=== PATIENT | female | born 1985 | race Caucasian/White ===

== ENCOUNTER 2020-03-02 11:05 | Emergency (ER) | payer BC, SELFPAY ==
[2020-03-02 11:41] VITALS: BP 145/103; PULSE 96; RESP 18; TEMP 37.5; O2SAT 97; BMI 32.3
[2020-03-02 12:00] VITALS: BP 132/92; PULSE 77; RESP 16; O2SAT 98
--- NOTE | 2020-03-02 12:22 | ED_ITS ---
HPI - Headache General Chief Complaint: Headache Stated Complaint: headache Time Seen by Provider: 03/02/20 12:22 Source: patient Mode of arrival: ambulatory Limitations: no limitations History of Present Illness HPI Narrative: Patient with 1 week of migraine headache. Left sided with nausea and light sensitivity. patient took her sumatryptine without improvement MD elicited complaint: migraine Onset (ago): week(s) Onset description: gradually Location: left Severity: moderate Quality & Timing: throbbing Exacerbating factors: movement of head/neck Related Data Previous Rx's Medication Instructions Recorded naproxen [Naprosyn] 500 mg PO BID #20 tab 03/02/20 Allergies Allergy/AdvReac Type Severity Reaction Status Date / Time No Known Allergies Allergy Verified 03/02/20 11:09 Review of Systems Constitutional: Constitutional: Reports no additional constitutional complaints Eyes: Eyes: Reports no additional eye complaints ENT: Denies dizziness Cardiovascular: Cardiovascular: Reports no additional cardiovascular complaints Respiratory: Respiratory: Reports as per HPI Gastrointestinal: Gastrointestinal: Reports no additional gastrointestinal complaints Genitourinary: Genitourinary: Reports no additional female genitourinary complaints Musculoskeletal: Musculoskeletal: Reports no additional musculoskeletal complaints Integumentary/Breasts: Skin/Breast: Denies rash Neurologic: Reports system reviewed and no additional complaints, except as documented, Denies dizziness and Denies Sensory deficit (Neuro) Psychiatric: Psychiatric: Denies anxiety [facility] Past Medical History Medical History (Updated 03/02/20 @ 16:15 by Mookie Young MD) Migraine Social History Social History Smoking Status: Never smoker Use of substances other than those prescribed or required for medical reasons: No Advance Directives: No Advance Directives Information Provided: No Physical Exam Vital Signs: Vital Signs: Vital Signs Temp Pulse Resp BP Pulse Ox 03/02/20 14:20 97.5 F 86 14 114/64 99 03/02/20 12:00 77 16 132/92 H 98 03/02/20 11:41 99.5 F 96 18 145/103 H 97 Body Mass Index 32.3 Const: General: healthy appearing Nutritional Appearance: average body habitus Orientation/consciousness: oriented to person and patient oriented x3 Limitations: no limitations HENMT: Head: Yes normal to inspection Ears: external ears normal General nose exam: Normal external nose present Mouth: Normal oral and palatal mucosa present and oropharynx normal Throat: Yes posterior oropharynx normal Eyes: General: appearance normal, both eyes and all related structures Neck: Other: supple Neck: Yes normal visual inspection Chest: Chest palpation & inspection: normal inspection of the chest Resp: Auscultation: clear to auscultation bilaterally Cardio: Jugular venous distension: no JVD Rate: regular rate Rhythm: regular rhythm Heart sounds: S1 normal heart sound present and S2 normal heart sound present GI: Inspection: Yes normal to inspection Palpation (GI): Soft to palpation, nontender and No hepatosplenomegaly present Auscultation: normal bowel sounds : General: Yes no CVA tenderness Back/Spine/Pelvis: Back: no CVA tenderness Skin: General skin exam: no rashes or lesions noted Neuro: General: oriented to person and patient oriented x3 Cranial nerves: Yes CN's II-XII intact bilaterally Motor exam (neuro): 5/5 motor strength present throughout Sensory Exam: No Sensory deficit (Neuro) Extrem: General: Yes normal to inspection Psych: Appearance: grossly normal Course Course Course Narrative: slurred from the phenergan Reevaluation(s) Reevaluation #1: patient appearing better will give IV tylenol and then dc home MDM - Headache MDM Narrative Medical decision making narrative: 35yo female with migraine history appearing better will dc home Differential Diagnosis Differential diagnosis: Likely migraine Discharge Plan Discharge Clinical Impression: Migraine Qualifiers: Migraine type: without aura Status migrainosus presence: with status migrainosus Intractability: intractable Qualified Code(s): G43.011 - Migraine without aura, intractable, with status migrainosus Patient Disposition: Home, Self-Care Instructions: Migraine Headache (ED) Prescriptions: New naproxen [Naprosyn] 500 mg tablet 500 mg PO BID Qty: 20 RF: 0 Referrals: Arsh Vanegas MD [Primary Care Provider] - 2 days
[2020-03-02] MEDS: 0.9 % Sodium Chloride 500 ML 1000 ML IV (13:12)
[2020-03-02] MEDS: Ketorolac Tromethamine 30 MG/ML VIAL IVPUSH (13:12)
[2020-03-02 14:20] VITALS: BP 114/64; PULSE 86; RESP 14; TEMP 36.4; O2SAT 99
--- NOTE | 2020-03-02 14:46 | PC.NURSE ---
went to re assess pt pain, pt sleeping at this time.
[2020-03-02] MEDS: Acetaminophen 325 MG TABLET 975 MG PO (16:59)
--- NOTE | 2020-03-02 17:02 | PC.NURSE ---
RN IN TO GIVE PT TYLENOL DOSE ORDERED BY . PT ASKING IF SHE CAN HAVE OTHER MEDS THAN TYLENOL, STATES THEY DID NOT WORK AT HOME. ALSO ASKING WHAT MED SHE WOULD BE DC WITH, REVIEWED NAPROXSYN WITH PT, PT AGAIN ASKING FOR DIFFERENT HOME MED THEY DID NTO WORK FOR HER AT HOME. EXPLAINED TO PT THAT SHE MAY NEED FU WITH NEUROLOGY FOR STRONGER MEDS, SPOKE WITH MD ABOUT [facility] AND HE AGREE PT SHOULD FOLLOW UP WITH NEURO. EXPLAINED AGAIN TO PT, SHE STATED THAT HER NEUROLOGIST DOES NOT CALL HER BACK, BUT THEN LATER TOLD RN THAT SHE HAD CALLED THEIR OFFICE WHEN MIGRAINE BEGAN AND HAS MEDROL PACK FROM THEM. ENCOURAGED PT TO CONTINUE TAKING MEDROL PRESCRIBED. REVIEWED HOME MEDS AND EXPLAINED TO PT IF MIGRAINE IS WORSENING TO RETURN TO ED, OTHER TRACEY CALL PCP/NEUROLOGY WEDNESDAY FOR APPOINTMENTS, AND POSSIBLY ASK FOR REFERRAL TO DIFFERENT NEUROLOGIST IF SHE FEELS HER NEEDS ARE NOT BEING MET. PT AGREED AND AMBULATED WITH STEADY GAIT TO EXIT.
== END 2020-03-02 17:06 | disposition home or self-care (01) ==
PROVIDERS: Emergency Provider Emergency Medicine; PCP Internal Medicine
DX: G43.011 Migraine without aura, intractable, with status migrainosus (principal); Z79.899 Other long term (current) drug therapy
CPT/HCPCS: 96374; 96375; 99284; J1885

== ENCOUNTER 2020-03-17 11:36 | Emergency (ER) | payer BC, SELFPAY ==
[2020-03-17 11:47] VITALS: BP 132/85; PULSE 72; RESP 16; TEMP 36.6; O2SAT 97; BMI 32.3
--- NOTE | 2020-03-17 11:56 | CT_ITS ---
EXAMINATION: CT HEAD WITHOUT CONTRAST CLINICAL INFORMATION: Headache. COMPARISON: None TECHNIQUE: Contiguous axial imaging was performed from the skull base to vertex without intravenous administration of contrast. This CT examination was performed using dose optimization techniques as appropriate, variously including the following: *Automated exposure control *Adjustment of mA and/or kV according to patient size (this includes techniques or standardized protocols for targeted exams where dose is matched to indication/reason for exam; i.e. extremities or head) *Use of iterative reconstruction technique DLP: 711.0 mGy-cm FINDINGS: There is no evidence of acute intracranial hemorrhage or territorial infarction. No abnormal mass effect or midline shift is seen. Treadwell to white matter differentiation is well preserved. No extra-axial fluid collections are identified. The ventricles are normal in size. There is no abnormal attenuation within the brain parenchyma. The osseous structures and soft tissues are normal. The mastoid air cells and visualized portions of the paranasal sinuses are well aerated. CT/CT head/brain wo con IMPRESSION: No acute intracranial pathology.
--- NOTE | 2020-03-17 11:59 | ED_ITS ---
HPI - Headache General Chief Complaint: Headache Stated Complaint: Migraine Time Seen by Provider: 03/17/20 11:56 Source: patient Mode of arrival: ambulatory History of Present Illness MD elicited complaint: headache Pertinent past history: migraines Onset (ago): week(s) (3) Onset description: gradually Location: generalized Severity: moderate Quality & Timing: throbbing Exacerbating factors: movement of head/neck, light and noise Relieving factors: NSAIDs and prescription medication Context: occurred at rest Associated symptoms: nausea and photophobia Treatments prior to arrival: none Related Data Previous Rx's Medication Instructions Recorded naproxen [Naprosyn] 500 mg PO BID #20 tab 03/02/20 Allergies Allergy/AdvReac Type Severity Reaction Status Date / Time No Known Allergies Allergy Verified 03/02/20 11:09 Review of Systems Review of Systems: Constitutional : No Fever, No Chills, No Fatigue ENT/Mouth : No sore throat, No Rhinorrhea Eyes: + photophobia , No Swelling, No Redness Cardiovascular : No Chest Pain, No SOB, No Dyspnea on Exertion Respiratory : No Cough, No Sputum Gastrointestinal : pos Nausea, No Vomiting, No Diarrhea, No abdominal Pain Genitourinary : No Dysuria, No Urinary Frequency, No Hematuria, Musculoskeletal : No joint pain, No Myalgias, No Joint Swelling Skin : No Skin Lesions, No rash Neuro : No Weakness, No Numbness, No Dizziness, positive Headache Psych : No Anxiety/Panic, No Depression Heme/Lymph: No Bruising, No Bleeding,No Lymphadenopathy Endocrine : No Polyuria, No Polydipsia All other systems reviewed and are negative [facility] Past Medical History Attestation statement: The following information was validated with the patient. Medical History (Updated 03/17/20 @ 13:48 by Sayda Sommers DO) Migraine PCOS (polycystic ovarian syndrome) Social History Social History Smoking Status: Never smoker Smoked in Last 30 Days: No Use of substances other than those prescribed or required for medical reasons: No Advance Directives: No Advance Directives Information Provided: Yes Physical Exam Vital Signs: Vital Signs: Last Vital Signs Temp 97.8 F 03/17/20 11:47 Pulse 72 03/17/20 11:47 Resp 16 03/17/20 11:47 BP 132/85 03/17/20 11:47 Pulse Ox 97 03/17/20 11:47 Body Mass Index 32.3 Appearance: Alert. Oriented X3. No acute distress. Eyes: Pupils equal, round and reactive to light. ENT: Pharynx normal. Neck: Normal inspection. Neck supple. no meningeal signs CVS: Normal heart rate and rhythm. Pulses normal. Respiratory: No respiratory distress. Breath sounds normal. Abdomen: Soft and nontender. Skin: Skin warm and dry. Normal skin color. Normal skin turgor. Extremities: No lower extremity edema. No calf ttp Neuro: Oriented X 3. No motor deficit. No sensory deficit. Course Course Course Narrative: CT scan negative, feels much better after cocktail of medications MDM - Headache MDM Narrative Medical decision making narrative: 35 yo female no AC therapy hx of headaches - with migraine x 3 weeks, longest duration, will obtain CT head for mass, IVF, IV magnesium/steroids, reglan/toradol, dispo per results and findings, has Neurologist to follow up with. Discharge Plan Discharge Clinical Impression: Migraine Qualifiers: Migraine type: without aura Status migrainosus presence: with status migrainosus Intractability: intractable Qualified Code(s): G43.011 - Migraine without aura, intractable, with status migrainosus Patient Disposition: Home, Self-Care Instructions: Migraine Headache (ED) Additional Instructions: return to ED for any worsening symptoms or concerns please follow up with your Neurologist: today in the ED you were given magnesium, dexamethasone, toradol, reglan and benadryl Prescriptions: No Action naproxen [Naprosyn] 500 mg tablet 500 mg PO BID Qty: 20 RF: 0 Stand Alone Forms: Work/School Release
[2020-03-17] MEDS: Ketorolac Tromethamine 30 MG/ML VIAL IVPUSH (12:18)
[2020-03-17] MEDS: dexAMETHasone sod phosphate 4 MG/ML VIAL 8 MG IVPUSH (12:18)
[2020-03-17] MEDS: Magnesium Sulfate/H2O 2 GM/50 ML PIGGYBACK IV (12:18)
[2020-03-17] MEDS: Metoclopramide HCl 10 MG/2 ML VIAL IVPUSH (12:18)
[2020-03-17] MEDS: diphenhydrAMINE HCL 50 MG/ML VIAL 25 MG IVPUSH (12:18)
[2020-03-17] MEDS: 0.9 % Sodium Chloride 1,000 ML 999 ML IVCONT (12:19)
[2020-03-17 14:24] VITALS: BP 105/60; PULSE 76; RESP 16; TEMP 36.8; O2SAT 98
== END 2020-03-17 14:29 | disposition home or self-care (01) ==
PROVIDERS: Emergency Provider Emergency Medicine; PCP Internal Medicine
DX: G43.011 Migraine without aura, intractable, with status migrainosus (principal); Z79.899 Other long term (current) drug therapy
CPT/HCPCS: 70450; 96365; 96366; 96375; 99284; 99285; J1100; J1200; J1885; J2765; J3475

== ENCOUNTER 2021-01-22 08:21 | Emergency (ER) | payer BC, SELFPAY ==
[2021-01-22 09:14] VITALS: BP 136/84; PULSE 79; RESP 18; TEMP 36.8; O2SAT 98; BMI 32.8
--- NOTE | 2021-01-22 09:20 | ED.HA ---
HPI - Headache General Chief Complaint: Headache Stated Complaint: headache Time Seen by Provider: 01/22/21 09:18 Source: patient Mode of arrival: ambulatory Limitations: no limitations History of Present Illness MD elicited complaint: migraine Pertinent past history: migraines Onset (ago): day(s) (2) Onset description: gradually Location: temporal Severity: moderate Quality & Timing: throbbing Exacerbating factors: light and noise Relieving factors: rest and dark room Context: occurred at rest Associated symptoms: nausea, vomiting and photophobia Treatments prior to arrival: migraine medication Related Data Previous Rx's Medication Instructions Recorded naproxen 500 mg tablet (Naprosyn) 500 mg PO BID #20 tab 03/02/20 cyclobenzaprine 10 mg tablet 10 mg PO TID PRN #14 tab 01/22/21 ondansetron 4 mg disintegrating 4 mg PO Q8H PRN #20 tab 01/22/21 tablet Allergies Allergy/AdvReac Type Severity Reaction Status Date / Time No Known Allergies Allergy Verified 01/22/21 09:13 Review of Systems Review of Systems: Constitutional : No Fever, No Chills, No Fatigue ENT/Mouth : No sore throat, No Rhinorrhea Eyes: pos Eye Pain, No Swelling, No Redness Cardiovascular : No Chest Pain, No SOB, No Dyspnea on Exertion Respiratory : No Cough, No Sputum Gastrointestinal : pos Nausea, pos Vomiting, No Diarrhea, No abdominal Pain Genitourinary : No Dysuria, No Urinary Frequency, No Hematuria, Musculoskeletal : No joint pain, No Myalgias, No Joint Swelling Skin : No Skin Lesions, No rash Neuro : No Weakness, No Numbness, No Dizziness, positive Headache Psych : No Anxiety/Panic, No Depression Heme/Lymph: No Bruising, No Bleeding,No Lymphadenopathy Endocrine : No Polyuria, No Polydipsia All other systems reviewed and are negative [facility] Past Medical History Attestation statement: The following information was validated with the patient. Medical History Migraine PCOS (polycystic ovarian syndrome) Social History Social History (Updated 01/22/21 @ 09:46 by Sayda Sommers DO) Patient Tobacco Use Status: Never used Tobacco Advance Directives: No Advance Directives Information Provided: No Patient : No Physical Exam Vital Signs: Vital Signs: Last Vital Signs Temp 97.6 F 01/22/21 10:19 Pulse 85 01/22/21 10:19 Resp 16 01/22/21 10:19 BP 132/85 01/22/21 10:19 Pulse Ox 98 01/22/21 10:19 Body Mass Index 32.8 Appearance: Alert. Oriented X3. No acute distress. Eyes: Pupils equal, round and reactive to light. + photophobia ENT: Pharynx normal. Neck: Normal inspection. Neck supple. no meningeal signs CVS: Normal heart rate and rhythm. Pulses normal. Respiratory: No respiratory distress. Breath sounds normal. Abdomen: Soft and nontender. Skin: Skin warm and dry. Normal skin color. Normal skin turgor. Extremities: No lower extremity edema. No calf ttp Neuro: Oriented X 3. No motor deficit. No sensory deficit. Course Course Course Narrative: patient feels better stable for DC MDM - Headache MDM Narrative Medical decision making narrative: 36 yo female with hx of PCOS and migraines here with migraine x 2 days not responding to triptans at this time will need labs, IV medications for pain - no AC therapy, no fevers, normal neuro - not consistent with SAH/[employer] infection Lab Data Result diagrams: 01/22/21 09:31 Labs: Lab Results 01/22/21 01/22/21 Range/Units 09:31 09:31 Sodium 136 (135-145) mmol/L Potassium 4.2 (3.3-5.1) mmol/L Chloride 104 (96-108) mmol/L Carbon Dioxide 26 (22-29) mmol/L Anion Gap 10 L (12-20) BUN 8 L (9-16) mg/dL Creatinine 0.68 (0.5-1.4) mg/dL Estim Creat Clear Calc 138.1 Estimated GFR > 60 Random Glucose 97 (60-115) mg/dL Calcium 9.0 (8.4-10.2) mg/dL COVID-19 ([facility]) Negative (Negative) COVID-19 Clin Com See Note Discharge Plan Discharge Clinical Impression: Migraine Qualifiers: Migraine type: without aura Status migrainosus presence: without status migrainosus Intractability: not intractable Qualified Code(s): G43.009 - Migraine without aura, not intractable, without status migrainosus Patient Disposition: Home, Self-Care Instructions: Migraine Headache (ED) Additional Instructions: return to ED for any worsening symptoms or concerns Prescriptions: New cyclobenzaprine 10 mg tablet 10 mg PO TID PRN (Reason: muscle spasm) Qty: 14 RF: 0 ondansetron 4 mg tablet,disintegrating 4 mg PO Q8H PRN (Reason: nausea and vomiting) Qty: 20 RF: 0 No Action naproxen [Naprosyn] 500 mg tablet 500 mg PO BID Qty: 20 RF: 0 Stand Alone Forms: Work/School Release
[2021-01-22 09:54] LABS: COVID-19 Test Negative (Negative); IDNOW Serial# 08D9AD1C
[2021-01-22 10:01] LABS: Anion Gap 10 (12-20); Blood Urea Nitrogen 8 mg/dL (9-16); Carbon Dioxide 26 mmol/L (22-29); Chloride 104 mmol/L (96-108); Creatinine Clr Calc Pharmacy 138.1; Estimated Glomerular Filt Rate > 60; Glucose Random 97 mg/dL (60-115); Potassium 4.2 mmol/L (3.3-5.1); Sodium 136 mmol/L (135-145)
[2021-01-22 10:19] VITALS: BP 132/85; PULSE 85; RESP 16; TEMP 36.4; O2SAT 98
[2021-01-22] MEDS: Ketorolac Tromethamine 15 MG/ML VIAL IVPUSH (10:30)
[2021-01-22] MEDS: Metoclopramide HCl 10 MG/2 ML VIAL IVPUSH (10:31)
[2021-01-22] MEDS: diphenhydrAMINE HCL 50 MG/ML VIAL 25 MG IVPUSH (10:31)
[2021-01-22] MEDS: 0.9 % Sodium Chloride 1,000 ML 999 ML IVCONT (10:33)
== END 2021-01-22 12:07 | disposition home or self-care (01) ==
PROVIDERS: Emergency Provider Emergency Medicine; PCP Internal Medicine
DX: G43.009 Migraine without aura, not intractable, without status migrainosus (principal); Z20.822 Contact with and (suspected) exposure to COVID-19; Z79.899 Other long term (current) drug therapy
CPT/HCPCS: 36415; 80048; 87635; 96361; 96374; 96375; 99284; J1200; J1885; J2765

== ENCOUNTER 2021-10-24 21:48 | Emergency (ER) | payer BC, SELFPAY ==
[2021-10-24 21:50] VITALS: BP 123/94; PULSE 71; RESP 16; O2SAT 98; BMI 32.8
--- NOTE | 2021-10-24 22:10 | ED.HA ---
HPI - Headache General Chief Complaint: Headache Stated Complaint: migraine Time Seen by Provider: 10/24/21 22:01 Source: patient Mode of arrival: ambulatory Limitations: no limitations History of Present Illness HPI Narrative: Patient comes to the emergency room complaining of high a migraine headache that started approximately 6 hours ago. Patient states that she has tried Fioricet, nausea medications, but the headache is not improving. Patient states that she has photophobia, nausea, no vomiting. Denies visual changes, no neurological deficits. Related Data Previous Rx's Medication Instructions Recorded naproxen 500 mg tablet (Naprosyn) 500 mg PO BID #20 tabs 03/02/20 cyclobenzaprine 10 mg tablet 10 mg PO TID PRN muscle spasm #14 01/22/21 tabs ondansetron 4 mg disintegrating 4 mg PO Q8H PRN nausea and 01/22/21 tablet vomiting #20 tabs ketorolac 10 mg tablet 10 mg PO TID PRN pain #10 tabs 10/25/21 metoclopramide HCl 5 mg tablet 5 mg PO DAILY PRN nausea and 10/25/21 (Reglan) vomiting #10 tabs Allergies Allergy/AdvReac Type Severity Reaction Status Date / Time No Known Allergies Allergy Verified 01/22/21 09:13 Review of Systems Review of Systems: Constitutional : No Weight loss, No Fever, No Chills, No Night Sweats, No Fatigue, No Malaise ENT/Mouth : No Hearing loss, No Ear Pain, No Nasal Congestion, No Sinus Pain, No Hoarseness, No sore throat, No Rhinorrhea, No Swallowing Difficulty Eyes: No Eye Pain, No Swelling, No Redness, No Foreign Body, No Discharge, No Vision Changes Cardiovascular : No Chest Pain, No SOB, No Dyspnea on Exertion, No Orthopnea, No Edema, No Palpitations Respiratory : No Cough, No Sputum, No Wheezing, No Smoke Exposure, No Dyspnea Gastrointestinal : No Nausea, No Vomiting, No Diarrhea, No Constipation, No abdominal Pain, No Hematochezia, No Melena Genitourinary : no irregular bleeding, No Dysuria, No Urinary Frequency, No Hematuria, No Urinary Incontinence, No Urgency, No Flank Pain, No Urinary Flow Changes, No Hesitancy Musculoskeletal : No joint pain, No Myalgias, No Joint Swelling Skin : No Skin Lesions, No rash Neuro : No Weakness, No Numbness, No Paresthesias, No Loss of Consciousness, No Dizziness, complaining of a migraine headache Psych : No Anxiety/Panic, No Depression, No SI/HI/AH/VH, No Social Issues, Heme/Lymph: No Bruising, No Bleeding,No Lymphadenopathy Endocrine : No Polyuria, No Polydipsia, No Temperature Intolerance [facility] Past Medical History Medical History Migraine PCOS (polycystic ovarian syndrome) Social History Social History (Updated 01/22/21 @ 09:46 by Sayda Sommers DO) Patient Tobacco Use Status: Never used Tobacco Advance Directives: No Advance Directives Information Provided: No Physical Exam Vital Signs: Vital Signs: Last Vital Signs Pulse 80 10/24/21 23:54 Resp 16 10/24/21 23:54 BP 119/69 10/24/21 23:54 Pulse Ox 98 10/24/21 23:54 O2 Del Method 10/24/21 23:54 BMI result Body Mass Index 32.8 Const: Other: Appearance: Alert. Oriented X3. No acute distress. Eyes: Pupils equal, round and reactive to light. Patient has photophobia ENT: Pharynx normal. Neck: Normal inspection. Neck supple. No lymph nodes noted. No crepitus CVS: Normal heart rate and rhythm. Pulses normal. Normal S1 and S2 Respiratory: No respiratory distress. Breath sounds normal. No Wheezing. No rales Abdomen: Soft and nontender. No rigidity. No distention. Skin: Skin warm and dry. Normal skin color. Normal skin turgor. Extremities: No lower extremity edema. No Lacerations. No Rash Neuro: Oriented X 3. No motor deficit. No sensory deficit. Moving all extremities. No slurred speech. CN 2 through 12 grossly intact Psych: calm, cooperative, normal affect Course Course Course Narrative: Patient is receiving IV fluids, diphenhydramine, ketorolac and Reglan After treatment, patient states that she feels much better. Patient ready for discharge. MDM - Headache Lab Data Labs: Lab Results 10/24/21 Range/Units 22:33 Beta HCG, Quant < 2 mIU/mL Discharge Plan Discharge Clinical Impression: Migraine Patient Disposition: Home, Self-Care Instructions: Migraine Headache (ED) Additional Instructions: Please follow-up with your primary care physician tomorrow. If you have any worsening or new symptoms, please return to the emergency room or call 911 Prescriptions: New metoclopramide HCl [Reglan] 5 mg tablet 5 mg PO DAILY PRN (Reason: nausea and vomiting) Qty: 10 0RF Rx Instructions: Take together with Toradol ketorolac 10 mg tablet 10 mg PO TID PRN (Reason: pain) Qty: 10 0RF No Action naproxen [Naprosyn] 500 mg tablet 500 mg PO BID Qty: 20 0RF cyclobenzaprine 10 mg tablet 10 mg PO TID PRN (Reason: muscle spasm) Qty: 14 0RF ondansetron 4 mg tablet,disintegrating 4 mg PO Q8H PRN (Reason: nausea and vomiting) Qty: 20 0RF
[2021-10-24] MEDS: diphenhydrAMINE HCL 50 MG/ML VIAL 25 MG IVPUSH (22:38)
[2021-10-24] MEDS: Metoclopramide HCl 10 MG/2 ML VIAL IVPUSH (22:39)
[2021-10-24] MEDS: 0.9 % Sodium Chloride 1,000 ML 999 ML IVCONT (22:39)
[2021-10-24 23:05] LABS: HCG Quantitative < 2 mIU/mL
[2021-10-24] MEDS: Ketorolac Tromethamine 30 MG/ML VIAL IVPUSH (23:17)
[2021-10-24 23:54] VITALS: BP 119/69; PULSE 80; RESP 16; O2SAT 98
== END 2021-10-25 00:51 | disposition home or self-care (01) ==
PROVIDERS: Emergency Provider Emergency Medicine; PCP Internal Medicine
DX: G43.009 Migraine without aura, not intractable, without status migrainosus (principal)
CPT/HCPCS: 36415; 84702; 96361; 96374; 96375; 99284; J1200; J1885; J2765

== ENCOUNTER 2022-07-21 21:55 | Emergency (ER) | payer OTHER, SELFPAY ==
[2022-07-21 22:13] VITALS: BP 142/93; PULSE 75; RESP 18; TEMP 36.8; O2SAT 97; BMI 32.8
--- NOTE | 2022-07-21 23:45 | ED_ITS ---
HPI - Headache General Chief Complaint: Headache Stated Complaint: migraine Time Seen by Provider: 07/21/22 23:30 Source: patient Mode of arrival: ambulatory Limitations: no limitations History of Present Illness HPI Narrative: This is a 37-year-old female with history of migraine presenting to the emergency department for evaluation of right-sided migraine that started this morning when she woke up, patient tells me that this feels like her typical migraine however she ran out of her typical medications. She typically takes nortriptyline, Reglan and Toradol. She tells me she has been calling providers all morning to try to get a refill however has been unsuccessful. Patient tells me that there is nothing unusual about today's migraine. She reports associated nausea and photophobia which are normal symptoms for her when she has migraines. She denies head trauma. Denies fevers, chills, chest pain, shortness of breath, vomiting, abdominal pain, neck pain, recent trauma, scalp tenderness, vision changes or dizziness. NIH stroke scale 0. Related Data Previous Rx's Medication Instructions Recorded naproxen 500 mg tablet (Naprosyn) 500 mg PO BID #20 tabs 03/02/20 cyclobenzaprine 10 mg tablet 10 mg PO TID PRN muscle spasm #14 01/22/21 tabs ondansetron 4 mg disintegrating 4 mg PO Q8H PRN nausea and 01/22/21 tablet vomiting #20 tabs ketorolac 10 mg tablet 10 mg PO TID PRN pain #10 tabs 10/25/21 metoclopramide HCl 5 mg tablet 5 mg PO DAILY PRN nausea and 10/25/21 (Reglan) vomiting #10 tabs diphenhydramine HCl 25 mg capsule 25 mg PO TID PRN headace #20 caps 07/21/22 (Benadryl) ketorolac 10 mg tablet 10 mg PO TID PRN pain 5 days #15 07/21/22 tabs metoclopramide HCl 10 mg tablet 10 mg PO Q6H PRN headache #20 tabs 07/21/22 (Reglan) sumatriptan succinate 25 mg tablet See Rx Instructions PO .COMPLEX 07/21/22 #14 tabs Allergies Allergy/AdvReac Type Severity Reaction Status Date / Time No Known Allergies Allergy Verified 01/22/21 09:13 Review of Systems Review of Systems: Constitutional : No Weight loss, No Fever, No Chills, No Fatigue, No Malaise ENT/Mouth : No sore throat, No Rhinorrhea Eyes: No Eye Pain, No Swelling, No Redness Cardiovascular : No Chest Pain, No SOB, No Dyspnea on Exertion, No Orthopnea, No Edema, No Palpitations Respiratory : No Cough, No Sputum, No Wheezing Gastrointestinal : No Nausea, No Vomiting, No Diarrhea, No Constipation, No abdominal Pain, No Hematochezia, No Melena Genitourinary : No Dysuria, No Urinary Frequency, No Hematuria, Musculoskeletal : No joint pain, No Myalgias, No Joint Swelling Skin : No Skin Lesions, No rash Neuro : No Weakness, No Numbness, No Dizziness, + Headache Psych : No Anxiety/Panic, No Depression All other systems reviewed and are negative Yes all other systems are reviewed and are negative [facility] Past Medical History Attestation statement: The following information was validated with the patient. Source: old records reviewed and nursing notes reviewed Medical History Migraine PCOS (polycystic ovarian syndrome) Social History Social History (Updated 01/22/21 @ 09:46 by Tatiana Sommers DO) Patient Tobacco Use Status: Never used Tobacco Advance Directives: No Advance Directives Information Provided: No Physical Exam Vital Signs: Vital Signs: Last Vital Signs Temp 98.2 F 07/21/22 22:13 Pulse 75 07/21/22 22:13 Resp 18 07/21/22 22:13 BP 142/93 H 07/21/22 22:13 Pulse Ox 97 07/21/22 22:13 O2 Del Method 07/21/22 22:13 BMI result Body Mass Index 32.8 Vital signs stable Appearance: Alert.? Oriented X3.? No acute distress.? Head: Normocephalic, atraumatic, no step-offs or deformities Eyes: Pupils equal, round and reactive to light.? Extraocular movements intact, pain-free and without nystagmus Neck: Normal inspection.? Neck supple.? No meningeal signs. CVS: Normal heart rate and rhythm.? Pulses normal.? Respiratory: No respiratory distress.? Breath sounds normal.? Abdomen: Soft and nontender.? Skin: Skin warm and dry.? Normal skin color.? Normal skin turgor.? Extremities: No lower extremity edema.? No calf ttp. 5/5 strength to bilateral upper and lower extremities Back: No midline tenderness, no C-spine tenderness, full range of motion, no CVA tenderness bilaterally Neuro: Oriented X 3.? No motor deficit.? No sensory deficit. CN 2-12 intact . Patient ambulating with steady gait normal coordination. Normal [id number], [id number], steady tandem gait. Normal rapid alternating movements. Negative Romberg and pronator drift. NIH stroke scale 0 Course Reevaluation(s) Reevaluation #1: Upon re-evaluation patient reports significant improvement in symptoms. Still reporting slight pain. Will give 1 time dose of morphine for symptomatic improvement. Patient will be discharged home with Reglan, Benadryl, Toradol, sumatriptan. Advised to follow-up with neurology. Neuro exam remains nonfocal. Cerebellar intact. Educated patient on diagnosis and treatment plan, answered all question, patient verbalizes understanding. At this time patient will be discharged home, advised to return with new or worsening symptoms. Educated on worrisome signs and symptoms and when to return. At this time I feel comfortable discharge home. Time: 00:43 Medications Administered Generic Name Dose Route Start Last Admin Trade Name Freq PRN Reason Stop Dose Admin Sodium Chloride 1,000 mls @ 999 mls/hr 07/21/22 23:45 07/22/22 00:02 Ns IV 07/22/22 00:45 999 mls/hr .Q1H1M ANDRIY Administration Discontinued Medications Generic Name Dose Route Start Last Admin Trade Name Freq PRN Reason Stop Dose Admin Diphenhydramine HCl 25 mg 07/21/22 23:50 07/22/22 00:02 Diphenhydramine Hcl 50 Mg/Ml Vial IVPUSH 07/21/22 23:51 25 mg ONCE ONE Administration Ketorolac Tromethamine 30 mg 07/21/22 23:50 07/22/22 00:03 Ketorolac Tromethamine 15 Mg/Ml Vial IM 07/21/22 23:51 30 mg ONCE ONE Administration Metoclopramide HCl 10 mg 07/21/22 23:50 07/22/22 00:02 Metoclopramide Hcl 10 Mg/2 Ml Vial IM 07/21/22 23:51 10 mg ONCE ONE Administration Sumatriptan Succinate 25 mg 07/21/22 23:50 07/22/22 00:13 Sumatriptan Succinate 25 Mg Tablet PO 07/21/22 23:51 25 mg ONCE ONE Administration Medical Decision Making Medical Decision Making [facility] Narrative: [id number] 37-year-old female presents to the emergency department for evaluation of right- sided migraine that started this morning, patient tells me this feels like her typical however ran out of p.o. meds at home. Patient has a neurologist however was unable to get prescriptions filled. To note, patient tells me she has had multiple imaging studies done of her head all of which have been negative. I do not find a need to repeat imaging. Also upon chart review it appears as though patient has been seen here multiple times for the same complaint. Physical examination benign. Neuro nonfocal. Cerebellar intact. NIH stroke scale 0. Likely typical migraine. Unlikely stroke, posterior stroke, meningitis, encephalitis. Unlikely temporal arteritis. Plan at this time is medications for migraine. No need for labs or imaging, no red flag symptoms for headache. Patient without fevers and chills. Differential Diagnosis Differential Diagnoses: The differential diagnosis associated with the presentation includes Likely typical migraine. Unlikely stroke, posterior stroke, meningitis, encephalitis. Unlikely temporal arteritis. Admission/Observation Consideration of admission/observation: Escalation of care including ad mission/observation considered Unlikely Tests considered The following testing was considered but not selected: No indication to do a CT of head, no focal neuro deficits, I do not suspect stroke, posterior stroke. No indication for CTA. I did consider doing laboratory studies however I do not suspect this is infectious in nature, likely typical migraine. Core Measures AMI core measures followed: Yes Measure exclusions: not indicated Critical Care Time Critical Care Time Critical Care Time: No Discharge Plan Discharge Clinical Impression: Migraine Patient Disposition: Home, Self-Care Instructions: Migraine Headache (ED) Additional Instructions: Take your medications as prescribed. If you were prescribed antibiotics today, it is important that you take your medication to their entirety, do not skip any doses, do not finish them early. Follow-up with your primary care provider this week. Follow up with your neurologist. Return to the emergency department with new or worsening symptoms. Such as fevers, chills, chest pain, shortness of breath, nausea, vomiting, dizziness, headache, vision changes, lethargy, weakness changes in speech In case of emergency call 911 Toradol has been sent to your pharmacy, you tolerated this well in the depart ment. Please take this as prescribed do not take this with ibuprofen, or other NSAIDs, do not mix this with alcohol. Side effects of this medication including increased risk for bleeding and possible kidney injury. Feel better! Prescriptions: New diphenhydramine HCl [Benadryl] 25 mg capsule 25 mg PO TID PRN (Reason: headace) Qty: 20 0RF metoclopramide HCl [Reglan] 10 mg tablet 10 mg PO Q6H PRN (Reason: headache) Qty: 20 0RF ketorolac 10 mg tablet 10 mg PO TID PRN (Reason: pain) 5 Days Qty: 15 0RF sumatriptan succinate 25 mg tablet See Rx Instructions .ROUTE .COMPLEX Qty: 14 0RF Rx Instructions: take 1 tab at onset of headache; if no relief may repeat 1 tab after at least 2 hrs; max = 4 tabs/24 hr No Action naproxen [Naprosyn] 500 mg tablet 500 mg PO BID Qty: 20 0RF cyclobenzaprine 10 mg tablet 10 mg PO TID PRN (Reason: muscle spasm) Qty: 14 0RF ondansetron 4 mg tablet,disintegrating 4 mg PO Q8H PRN (Reason: nausea and vomiting) Qty: 20 0RF metoclopramide HCl [Reglan] 5 mg tablet 5 mg PO DAILY PRN (Reason: nausea and vomiting) Qty: 10 0RF Rx Instructions: Take together with Toradol ketorolac 10 mg tablet 10 mg PO TID PRN (Reason: pain) Qty: 10 0RF Referrals: Arsh Vanegas MD [Primary Care Provider] - 2 days Stand Alone Forms: Work/School Release
[2022-07-22] MEDS: diphenhydrAMINE HCL 50 MG/ML VIAL 25 MG IVPUSH (00:02)
[2022-07-22] MEDS: 0.9 % Sodium Chloride 1,000 ML 999 ML IV (00:02)
[2022-07-22] MEDS: Metoclopramide HCl 10 MG/2 ML VIAL IM (00:02)
[2022-07-22] MEDS: Ketorolac Tromethamine 15 MG/ML VIAL 30 MG IM (00:03)
[2022-07-22] MEDS: SUMAtriptan succinate 25 MG TABLET PO (00:13)
[2022-07-22] MEDS: Morphine Sulfate 2 MG/ML CARTRIDGE IVPUSH (01:05)
--- NOTE | 2022-07-22 01:09 | PC.NURSE ---
patient reports great relief of pain from medications. pain score down to 1 out of 10
== END 2022-07-22 01:11 | disposition home or self-care (01) ==
PROVIDERS: Emergency Provider Emergency Medicine; PCP Internal Medicine
DX: G43.909 Migraine, unspecified, not intractable, without status migrainosus (principal); Z79.899 Other long term (current) drug therapy
CPT/HCPCS: 96372; 96374; 96375; 99283; 99284; J1200; J1885; J2270; J2765

== ENCOUNTER 2023-12-10 08:50 | Outpatient (REF) | payer OTHER, SELFPAY ==
[2023-12-10 14:05] LABS: Hematocrit 39.6 % (37.0-47.0); Hemoglobin 13.6 g/dl (12.0-16.0); Mean Corpuscular HGB Conc 34.3 g/dl (31.0-35.0); Mean Corpuscular Volume 87.4 fL (80.0-98.0); Mean Platelet Volume 10.9 fL (9.4-12.3); Platelet Count 251 X10*3/uL (160-400); Red Blood Count 4.53 X10*6/uL (4.20-5.50); White Blood Count 7.7 X10*3/uL (4.8-10.8)
[2023-12-10 14:37] LABS: Alanine Aminotransferase 19 U/L (0-31); Albumin Level 3.9 g/dL (3.5-5.0); Alkaline Phosphatase 134 U/L (39-117); Anion Gap 14 (12-20); Aspartate Amino Transferase 15 U/L (5-31); Bilirubin Total 0.2 mg/dL (0.0-1.0); Blood Urea Nitrogen 7 mg/dL (9-16); Calcium 9.1 mg/dL (8.4-10.2); Carbon Dioxide 23 mmol/L (22-29); Chloride 107 mmol/L (96-108); Cholesterol 184 mg/dL (<200); Estimated Glomerular Filt Rate > 60; Glucose Random 82 mg/dL (60-115); HDL Cholesterol 33 mg/dL (>40); LDL Cholesterol Calculated 107 mg/dL (<100); Potassium 3.9 mmol/L (3.3-5.1); Sodium 140 mmol/L (135-145); TSH reflex Free T4 1.05 uIU/mL (0.32-4.0); Total Protein 7.1 g/dL (6.5-8.0); Triglycerides 221 mg/dL (<150)
[2023-12-14 09:18] LABS: HCV Log PCR <1.18 NOT DETECTED Log IU/mL (NOT DETECTED); HepC Viral Load <15 NOT DETECTED IU/mL (NOT DETECTED)
== END 2023-12-10 08:51 | disposition home or self-care (01) ==
LOC: HO.CHCLDS 08:50
PROVIDERS: Visit Provider Internal Medicine
DX: E28.2 Polycystic ovarian syndrome (principal); E66.9 Obesity, unspecified
CPT/HCPCS: 36415; 80053; 80061; 84443; 85027; 87522

== ENCOUNTER 2023-12-20 08:54 | Outpatient (REF) | payer MEDICAID, SELFPAY ==
--- NOTE | ~2023-12-20 | US_ITS ---
EXAMINATION: US ABDOMEN COMPLETE CLINICAL INFORMATION: Elevated alkaline phosphatase. COMPARISON: None available. TECHNIQUE: Real-time imaging of the abdominal viscera. Technically limited study secondary to bowel gas. FINDINGS: PANCREAS: Visualized portion of the pancreas are normal in appearance. ABDOMINAL AORTA: Visualized portions of the mid abdominal aorta are normal in caliber. The proximal and distal abdominal aorta were not clearly visualized due to overlying bowel gas. INFERIOR VENA CAVA: Not clearly visualized due to overlying bowel gas. LIVER: The liver is mildly enlarged. The liver contour is normal. Diffusely increased liver echogenicity. No focal hepatic lesion. There is no intrahepatic biliary duct dilatation seen. GALLBLADDER: Normal. The gallbladder is physiologically distended without evidence of stones, sludge, polyps, wall thickening or pericholecystic fluid. Negative sonographic Ortiz's sign. COMMON BILE DUCT: Normal in caliber measuring 0.22 cm in diameter. RIGHT KIDNEY: Normal. No hydronephrosis. No renal calculi or focal parenchymal lesions. The kidney measures 12.8 cm in maximum dimension. LEFT KIDNEY: Normal. No hydronephrosis. No renal calculi or focal parenchymal lesions. The kidney measures 12.9 cm in maximum dimension. SPLEEN: Normal. The spleen measures 12.1 cm in maximum dimension. FREE FLUID: None. US/US abdomen complete IMPRESSION: 1. Examination limited secondary to overlying bowel gas. 2. Mild hepatomegaly with diffusely increased liver echogenicity. This is a nonspecific finding but most suggestive of hepatic steatosis. Correlation with liver enzymes recommended. Electronically signed by: Mo Angel MD 01/08/2024 09:52 AM EDT
== END 2023-12-20 08:55 | disposition home or self-care (01) ==
LOC: HO.HMGCX 08:54
PROVIDERS: PCP Internal Medicine; Visit Provider Internal Medicine
DX: R74.8 Abnormal levels of other serum enzymes (principal)
CPT/HCPCS: 76700

== ENCOUNTER 2024-07-05 15:43 | Outpatient (REF) | payer MEDICAID, SELFPAY ==
[2024-07-05 18:30] LABS: MANUAL DIFF FLAG NO
[2024-07-05 18:51] LABS: Appearance Urine Turbid; Color Urine BROWN; Glucose Urine UA Negative (Negative); Leukocyte Esterase Urine Negative (Negative); Nitrite Urine Negative (Negative); Specific Gravity - Urine >= 1.030 (1.005-1.025); UMIC TRIGGER UACC YES; Urine Blood Trace (Negative); Urine Ketones Negative (Negative); Urine Protein Trace mg/dL (Neg-Trace)
[2024-07-05 18:52] LABS: Basophils Percent Auto 0.1 % (0-2); Eosinophils Percent Auto 0.4 % (0-4); Hematocrit 41.2 % (37.0-47.0); Imm Gran Abs Auto 0.04 X10*3/uL (0.00-0.03); Imm Gran Pct Auto 0.4 % (0.0-0.4); Lymphocytes Absolute Auto 0.8 X10*3/uL (1.2-4.9); Lymphocytes Percent Auto 8.2 % (20-40); Mean Corpuscular Hemoglobin 29.1 pg (27.0-33.0); Mean Corpuscular Volume 85.7 fL (80.0-98.0); Mean Platelet Volume 10.4 fL (9.4-12.3); Monocytes Absolute Auto 0.7 X10*3/uL (0.1-1.2); Monocytes Percent Auto 6.6 % (2-11); Neutrophils Absolute Auto 8.3 x10*3/uL (2.0-8.3); Neutrophils Percent Auto 84.3 % (45-73); Platelet Count 236 X10*3/uL (160-400); Red Blood Count 4.81 X10*6/uL (4.20-5.50); White Blood Count 9.8 X10*3/uL (4.8-10.8)
[2024-07-05 19:00] LABS: Bacteria Urine Trace (None Seen); WBC Urine 0-5 /HPF (0-5)
[2024-07-05 19:03] LABS: Anion Gap 12 (12-20); Blood Urea Nitrogen 8 mg/dL (9-16); Calcium 8.4 mg/dL (8.4-10.2); Carbon Dioxide 21 mmol/L (22-29); Chloride 106 mmol/L (96-108); Estimated Glomerular Filt Rate > 60; Glucose Random 93 mg/dL (60-115); Potassium 3.4 mmol/L (3.3-5.1); Sodium 136 mmol/L (135-145)
--- OUTSIDE RECORDS SUMMARY | 2024-07-05 19:15 | XMS_ITS | Encounter Summary ---
Author Organization [employer] Address [address] [address] [address], [place] [address] Care Team Providers Care Shift Lab Technician Name Role Phone Chen Robin MD Primary Care Provider [phone] Reason for Visit * Reason Comments Abdominal Pain Encounter Details Date Type Department Care Team ([facility] Contact Info) Description 07/05/2024 3:00 PM EST Office Visit [facility] [address] [place] [address] Chen Robin MD [address] [place] [address] Left lower quadrant pain (Primary Dx); Diarrhea of presumed infectious origin; Nausea and vomiting, unspecified vomiting type Social History Tobacco Use Types Packs/Day Years Used Date Smoking Tobacco: Never Smokeless Tobacco: Never Depression Answer Date Recorded Patient Health Questionnaire-9 Score 4 12/09/2023 Patient Health Questionnaire-9 Score 4 12/09/2023 Last PHQ-9: Questionnaire Data Not on file 0 12/09/2023 Housing Stability Answer Date Recorded What is your housing situation today? I have paula diane 12/02/[address] you li ve. Do you have problems with any of the following? None of the above 12/02/2023 Food Insecurity Answer Date Recorded Within the past 12 months, y ou worried that your food would run out before you got money to buy more: Never True 12/02/2023 Within the past 12 months,th e food you bought just didn't last and you didn't have enough money to get more: Never True Transportation Answer Date Recorded In the past 12 months, has l ack of transportation kept you from medical appts, meetings, work or from getting things needed for daily living? No 12/02/2023 Utilities Answer Date Recorded In the past 12 months, has t he electric, gas, oil or water company threatened to shut off services in your home? No 12/02/2023 Depression Answer Date Recorded Patient Health Questionnaire-2 Score 2 12/09/2023 Internet Access Answer Date Recorded Internet Access Q1 Yes 01/08/2024 Internet Access Q2 Not on file 01/08/2024 Comments Unknown Sex and Gender Information Value Date Recorded Sex Assigned at Female 07/22/2023 12:15 PM EDT Legal Sex Female 12:13 PM EDT Gender Identity Female 07/22/2023 12:15 PM EDT Sexual Orientation Bisexual 12/09/2023 3: 32 PM EDT Travel History Travel Start Travel End [place] 06/25/2024 07/01/2024 documented as of this encounter Last Filed Vital Signs Vital Sign Reading Time Taken Comments Blood Pressure 137/94 07/05/2024 3:02 PM EST Pulse 120 07/05/2024 3:02 PM EST Temperature 36.7 ??C (98 ??F) 07/05/2024 3:02 PM EST Respiratory Rate 20 07/05/2024 3:02 PM EST Oxygen Saturation 98% 07/05/2024 3:02 PM EST Inhaled Oxygen Concentration - - Weight 97.1 kg (214 lb) 07/05/2024 3:02 PM EST Height 170.2 cm (5' 7 ) 07/05/2024 3:02 PM EST Body Mass Index 33.52 07/05/2024 3:02 PM EST documented in this encounter Plan of Treatment Not on file documented as of this encounter Procedures Procedure Name Priority Date/Time Associated Diagnosis Comments CBC WITH AUTO DIFFERENTIAL Routine 07/05/2024 3:45 PM EST Left lower quadrant pain Diarrhea of presumed infectious origin BASIC METABOLIC PANEL Routine 07/05/2024 3:45 PM EST Diarrhea of presumed infectious origin URINALYSIS, COMPLETE, WITH REFLEX TO CULTURE Routine 07/05/2024 3:30 PM EST Left lower quadrant pain Diarrhea of presumed infectious origin documented in this encounter Results * (ABNORMAL) Basic Metabolic Panel (07/05/2024 3:45 PM EST) [facility] Sodium 136 135 - 145 mmol/L [facility] Potassium 3.4 3.3 - 5.1 mmol/L [facility] Chloride 106 96 - 108 mmol/L [facility] Carbon Dioxide 21(L) 22 - 29 mmol/L [facility] Anion Gap 12 12 - 20 [facility] Urea Nitrogen (BUN) 8(L) 9 - 16 mg/dL [facility] Creatinine, Serum 0.66 0.5 - 1.4 mg/dL [facility] Estimated Glomerular Filt Rate >60 [facility] Comment:Chronic Kidney Disea se: Estimated GFR < 60 mL/min/1.45h4Rbkoem Kidney Disease: Estimated GFR < 15 mL/min/1.73m2 Glucose 93 60 - 115 mg/dL [facility] Calcium 8.4 8.4 - 10.2 mg/dL [facility] Blood Venous blood specimen / Unknown 07/05/2024 3:45 PM EST 07/05/2024 6:25 PM EST us Chen Robin MD LAB BLOOD ORDERABLES Final Result [facility] [address] [place] [phone] * (ABNORMAL) CBC auto differential (07/05/2024 3:45 PM EST) Pathologist [facility] White Blood Count 9.8 4.8 - 10.8 X10*3/uL [facility] Red Blood Count 4.81 4.20 - 5.50 X10*6/uL [facility] Hemoglobin 14.0 12.0 - 16.0 g/dl [facility] Hematocrit 41.2 37.0 - 47.0 % [facility] Mean Corpuscular Volume 85.7 80.0 - 98.0 fL [facility] Mean Corpuscular Hemoglobin 29.1 27.0 - 33.0 pg [facility] Mean Corpuscular HGB Conc 34.0 31.0 - 35.0 g/dl [facility] Red Cell Distribution Width 12.0 11.0 - 16.0 % [facility] Platelet Count 236 160 - 400 X10*3/uL [facility] Mean Platelet Volume 10.4 9.4 - 12.3 fL [facility] Neutrophils Percent Auto 84.3(H) 45 - 73 % [facility] Imm Gran Pct Auto 0.4 0.0 - 0.4 % [facility] Lymphocytes Percent Auto 8.2(L) 20 - 40 % [facility] Monocytes Percent Auto 6.6 2 - 11 % [facility] Eosinophils Percent Auto 0.4 0 - 4 % [facility] Basophils Percent Auto 0.1 0 - 2 % [facility] NRBC Pct Auto 0.0 0.0 - 0.2 /100WBC [facility] Neutrophils Absolute Auto 8.3 2.0 - 8.3 x10*3/uL [facility] Imm Gran Abs Auto 0.04(H) 0.00 - 0.03 X10*3/uL [facility] Lymphocytes Absolute Auto 0.8(L) 1.2 - 4.9 X10*3/uL [facility] Monocytes Absolute Auto 0.7 0.1 - 1.2 X10*3/uL [facility] Eosinophils Absolute Auto 0.0 0.0 - 0.4 X10*3/uL [facility] Basophils Absolute Auto 0.0 0.0 - 0.2 X10*3/uL [facility] NRBC Abs Auto 0.000 0.0 - 0.012 X10*3/uL [facility] Blood Venous blood specimen / Unknown 07/05/2024 3:45 PM EST 07/05/2024 6:25 PM EST Chen Robin MD LAB BLOOD ORDERABLES Final Result [facility] [address] [place] [phone] * (ABNORMAL) Urinalysis, Complete, with Reflex to Culture (07/05/2024 3:30 PM EST) Color Urine BROWN [facility] Appearance Urine Turbid [facility] PH 6.0 5.0 - 9.0 [facility] Glucose Urine UA Negative Negative mg/dL [facility] Urine Blood Trace Negative [facility] Specific [place] - Urine >=1.030(H) 1.005 - 1.025 [facility] Urine Protein Trace Neg-Trace mg/dL [facility] Urine Ketones Negative Negative mg/dL [facility] Nitrite Urine Negative Negative [facility] Leukocyte Esterase Urine Negative Negative [facility] RBC Urine 6-10(A) 0 - 2 /HPF [facility] Urine WBC 0-5 0 - 5 /HPF [facility] Urine Squamous Epithelial Cell 11-20 0 - 2 /HPF [facility] Urine Bacteria Trace None Seen [facility] Hyaline Casts, Urine 3-5 0 - 2 /LPF [facility] Urine 07/05/2024 3:30 PM EST 07/05/2024 6:35 PM EST Narrative [facility] - 07/05/2024 7:09 PM EST [id number], Clean Catch Chen Robin MD LAB URINE ORDERABLES Final Result [facility] [address] [place] [phone] documented in this encounter Visit Diagnoses Diagnosis Left lower quadrant pain- Primary Abdominal pain, left lower quadrant Diarrhea of presumed infectious origin Nausea and vomiting, unspecified vomiting type documented in this encounter Additional Health Concerns Assessment Noted Time PHQ-9 Depression Total Score: 4 12/09/19 24 1:47 PM EDT documented as of this encounter Care Teams Shift Lab Technician Relationship Specialty Start Date End Date Chen Robin MD [address] [place] [phone] PCP - General Internal Medicine 12/09/23 documented as of this encounter
--- OUTSIDE RECORDS SUMMARY | 2024-07-05 19:15 | XMS_ITS | Encounter Summary ---
Author Organization [employer] Address [address] [facility] [address] [place] [address] Care Team Providers Care Ceramic Tiler Name Role Phone Chen Robin MD Primary Care Provider [phone] Encounter Details Date Type Department Care Team (Latest Contact Info) Description 07/05/2024 Travel Social History Tobacco Use Types Packs/Day Years [...] EDT Travel History Travel Start Travel End [place] 06/25/2024 07/01/2024 documented as of this encounter Plan of Treatment Not on file documented as of this encounter Visit Diagnoses Not on filedocumented in this encounter Additional Health Concerns Assessment Noted Time PHQ-9 Depression Total Score: 4 12/09/19 1:47 PM EDT documented as of this encounter Care Teams Ceramic Tiler Relationship Specialty Start Date End Date Chen Robin MD [address] [place] [address] PCP - General Internal Medicine 12/09/23 documented as of this encounter
--- OUTSIDE RECORDS SUMMARY | 2024-07-05 19:16 | XMS_ITS ---
Author Name [facility] Organization Unknown Results Test Name/Text Value Interpretation Date Range Source Service [facility] XXX-Imp Cepheid GeneXpert (RT-PCR) [facility] Normal [id number] [facility] FLUBV RNA Nph Ql ALEC+non-probe NEGATIVE Normal [id number] [facility] FLU[facility] RNA Nph Ql ALEC+non-probe NEGATIVE Normal [id number] [facility] BILIRUB SERPL MCNC 0.2mg/dL Below low normal [id number] 0.3 - 1 [facility] BILIRUB DIRECT SERPL MCNC 0mg/dL Normal [id number] 0 - 0.2 [facility] AMYLASE SERPL CCNC 28U/L Below low normal [id number] 29 - 103 [facility] LDH SERPL L TO P CCNC 141U/L Normal [id number] 125 - 220 [facility] AST SERPL [facility]NC 19U/L Normal [id number] 5 - 40 CT [facility] ALP SERPL-CCNC 121U/L Above high normal [id number] 34 - 104 [facility] ALT SERPL CCNC 15U/L Normal [id number] 7 - 52 CT [facility] CREAT SERPL MCNC 0.6mg/dL Normal [id number] 0.5 - 1 [facility] CALCIUM SERPL MCNC 8.3mg/dL Below low normal [id number] 8.4 - 10.2 [facility] SODIUM SERPL SCNC 137mmol/L Normal [id number] 135 - 145 [facility] ANION GAP SERPL SCNC 10mmol/L Normal [id number] 5 - 14 [facility] Glomerular filtration rate/1.73 sq M. predicted 119 Normal [id number] 60 - [facility] HCO3 SER SCNC 22mmol/L Below low normal [id number] 24 - 3 2 [facility] GLUCOSE SERPL MCNC 85mg/dL Normal [id number] 70 - 199 [facility] BUN SERPL MCNC 8mg/dL Normal [id number] 7 - 17 CT [facility] CHLORIDE SERPL SCNC 105mmol/L Normal [id number] 98 - 107 [facility] POTASSIUM SERPL SCNC 4mmol/L Normal [id number] 3.5 - 5.1 [facility] LIPASE SERPL CC[facility] 26U/L Normal [id number] 11 - 82 [facility] PLATELET NO. BLD AUTO 247K/uL Normal [id number] 150 - 450 [facility] RBC NO. BLD AUTO 3.74M/uL Below low normal [id number] 4.2 - 5.4 [facility] NUCLEATED RBC 0% Normal [id number] 0 - 1 [facility] LYMPHOCYTES NO. BLD AUTO 1.8K/uL Normal [id number] 1 - 3.2 [facility] EOSINOPHIL NO. BLD AUTO 0.3K/uL Normal [id number] 0 - 0.5 [facility] MCH RBC QN AUTO 28.9pg Normal [id number] 25 - 33 [facility] MCHC RBC AUTO MCNC 34.3g/dL Normal [id number] 32 - 36 [facility] MONOCYTES NFR BLD AUTO 8.2% Normal [id number] 2 - 12 [facility] IMMATURE GRANULOCYTE, ABSOLUTE 0.03k/uL Normal [id number] - 0.1 [facility] LYMPHOCYTES NFR BLD AUTO 23.5% Normal [id number] 20 - 48 [facility] EOSINOPHIL NFR BLD AUTO 3.6% Normal [id number] 0 - 6 [facility] HGB BLD MCNC 10.8g/dL Below low normal [id number] 12.5 - 16 [facility] NEUTROPHILS NO. BLD AUTO 5K/uL Normal [id number] 1.8 - 7.8 [facility] WBC NO. BLD AUTO 7.8K/uL Normal [id number] 4 - 10.5 [facility] BASOPHILS NFR BLD AUTO 0.1% Normal [id number] 0 - 2 [facility] MONOCYTES NO. BLD AUTO 0.6K/uL Normal 0 - 0.8 [facility] MCV RBC AUTO 84.2fL Normal [id number] 78 - 100 [facility] NEUTROPHILS NFR BLD AUTO 64.2% Normal [id number] 44 - 74 [facility] IMMATURE GRANULOCYTE, PERCENT 0.4% Normal [id number] 0 - 1 [facility] BASOPHILS IN BLOOD BY AUTOMATED COUNT 0K/uL Normal [id number] 0 - 0.2 [facility] PMV BLD AUTO 9.6fL Normal [id number] 7.4 - 11.4 [facility] RDW RBC AUTO RTO 12.9% Normal [id number] 12.1 - 16.2 [facility] HCT VFR BLD AUTO 31.5% Below low normal [id number] 37 - 47 [facility] SPECIMEN SOURCE XXX NASOPHARYNGEAL Normal [id number] [facility]
--- OUTSIDE RECORDS SUMMARY | 2024-07-05 19:16 | XMS_ITS | Clinical Summary ---
Author Organization [employer] Address [address] [place] [address] [address] [place] [address] Care Team Providers Care Courier Driver Name Role Phone Chen Robin MD Primary Care Provider [phone] Allergies No known active allergies Medications propranolol (Inderal) 20 MG tablet Take 20 mg by mouth. 2 Active naratriptan (Amerge) 2.5 MG tablet PLEASE SEE ATTACHED FOR DETAILED DIRECTIONS Active metoclopramide (Reglan) 10 MG tablet TAKE 1 TABLET BY MOUTH EVERY DAY NEEDED *REPEAT IN 6 HOURS IF NEEDED, MAX 3/ 24 HOURS* Active ketorolac (Toradol) 10 MG tablet TAKE 1 TABLET BY MOUTH 3 TIMES A DAY NEEDED FOR PAIN X5 DAYS 4 Active metFORMIN, OSM, (Fortamet) 500 MG 24 hr tabletIndications :PCOS (polycystic ovarian syndrome) Take 1 tablet (500 mg) by mouth with evening meal. Do not crush, chew, or split. 30 tablet 11 4 12/09/19 25 Active Blood Pressure kitIndications:El evated BP without diagnosis of hypertension Check BP daily ,. 1 kit 4 Active loratadine (Claritin) 10 MG tabletIndications :H/O allergic rhinitis TAKE 1 TABLET BY MOUTH EVERY DAY 90 tablet 1 4 Active ondansetron (Zofran) 4 MG tabletIndications :Nausea and vomiting, unspecified vomiting type Take 1 tablet (4 mg) by mouth every 8 (eight) hours if needed for nausea or vomiting for up to 7 days. 20 tablet 5 03/05/20 25 Active Active Problems Problem Noted Date Diagnosed Date Class 1 obesity 12/09/2023 PCOS (polycystic ovarian syndrome) 12/09/2023 IBS (irritable bowel syndrome) 12/09/2023 Migraine without status migrainosus, not intract able 12/09/2023 H/O renal calculi 12/09/2023 Encounters Date Type Department Care Team Description 07/05/2024 3:00 PM EST Office Visit [facility] [address] [place] [address] Chen Robin MD Left lower quadrant pain (Primary Dx); Diarrhea of presumed infectious origin; Nausea and vomiting, unspecified vomiting type 07/05/2024 Travel 07/05/2024 Telephone [facility] MEDICINE [address] [place] [phone] Chen Robin MD Nurse Triage 07/04/2024 Telephone [facility] [address] [place] [address] Chen Robin MD Nurse Triage 04/14/2024 Telephone [facility] MEDICINE [address] [place] [phone] Chen Robin MD Referral from Last 3 Months Social History Tobacco Use Types Packs/Day Years Used Date Smoking Tobacco: Never Smokeless Tobacco: Never Tobacco Cessation:Counseling Given: No Depression Answer Date Recorded Patient Health Questionnaire-9 [...] EDT Travel History Travel Start Travel End [place] 06/25/2024 07/01/2024 Last Filed Vital Signs Vital Sign Reading [...] Mass Index 33.52 07/05/2024 3:02 PM EST Plan of Treatment Health Maintenance Due Date Last Done Comments HIV Screening 1987 Alcohol/Substance Use Screening 1999 Family Planning (PISQ) 2002 Hepatitis B Vaccines (1 of 3 - 19+ 3-dose series) 2006 Pap Smear 01/16/2008 Cervical Cancer Screening 2017 HPV/Cotest 2017 COVID-19 Vaccine ( season) 2024 01/25/2023, 03/29/2022, 03/20/2021, Additional history exists Influenza Vaccine (#1) 2024 , 03/29/2022, 03/20/2021, Additional history exists SDOH Screening 12/01/2024 12/02/2023 Depression Screening 12/08/2024 12/09/2023, 12/09/19 DTaP/Tdap/Td Vaccines (2 - Td or Tdap) 02/23/2025 02/23/2015 Tobacco Screening 07/05/2025 07/05/2024 Lipid Panel 12/09/2028 12/10/2023 Zoster Vaccines (1 of 2) 2037 RSV Patients and Patients Aged 60 years or older (1 - 1-dose 75+ series) 2062 Hepatitis C Screening Completed 12/10/2023 HIB Vaccines Aged Out No longer eligi ble based on patient's age to complete this topic HPV Vaccines Aged Out No longer eligi ble based on patient's age to complete this topic Hepatitis A Vaccines Aged Out No long er eligible based on patient's age to complete this topic IPV Vaccines Aged Out No longer eligi ble based on patient's age to complete this topic Meningococcal Vaccine Aged Out No bridger mariam eligible based on patient's age to complete this topic Pneumococcal Vaccine: Pediatrics (0 to 5 Years) and At-Risk Patients (6 to 49) Years) Aged Out No longer eligible based on patient's age to complete this topic RSV under 20 months Aged Out No longe r eligible based on patient's age to complete this topic Rotavirus Vaccines Aged Out No longer eligible based on patient's age to complete this topic Procedures Procedure Name Priority Date/Time Associated Diagnosis Comments BASIC METABOLIC PANEL Routine 07/05/2024 3:45 PM EST Diarrhea of presumed infectious origin CBC WITH AUTO DIFFERENTIAL Routine 07/05/2024 3:45 PM EST Left lower quadrant pain Diarrhea of presumed infectious origin URINALYSIS, COMPLETE, WITH REFLEX TO CULTURE Routine 07/05/2024 3:30 PM EST Left lower quadrant pain Diarrhea of presumed infectious origin LIPID PANEL, STANDARD Routine 12/10/2023 8:57 AM EDT PCOS (polycystic ovarian syndrome) Class 1 obesity HEPATITIS C VIRAL RNA, QUANTITATIVE, REAL-TIME PCR Routine 12/10/2023 8:51 AM EDT PCOS (polycystic ovarian syndrome) Class 1 obesity from Last 3 Months or Most Recently Relevant to Health Maintenance Results * (ABNORMAL) CBC auto differential (07/05/2024 3:45 PM EST) White Blood Count 9.8 4.8 - 10.8 X10*3/uL [facility] Red Blood Count 4.81 4.20 - 5.50 X10*6/uL [facility] Hemoglobin 14.0 12.0 - 16.0 g/dl [facility] Hematocrit 41.2 37.0 - 47.0 % [facility] Mean Corpuscular Volume 85.7 80.0 - 98.0 fL [facility] Mean Corpuscular Hemoglobin 29.1 27.0 - 33.0 pg [facility] Mean Corpuscular HGB Conc 34.0 31.0 - 35.0 g/dl [facility] Red Cell Distribution Width 12.0 11.0 - 16.0 % [facility] Platelet Count 236 160 - 400 X10*3/uL [facility] Mean Platelet Volume 10.4 9.4 - 12.3 fL [facility] Neutrophils Percent Auto 84.3(H) 45 - 73 % [facility] Imm Gran Pct Auto 0.4 0.0 - 0.4 % [facility] Lymphocytes Percent Auto 8.2(L) 20 - 40 % [facility] Monocytes Percent Auto 6.6 2 - 11 % [facility] Eosinophils Percent Auto 0.4 0 - 4 % [facility] Basophils Percent Auto 0.1 0 - 2 % [facility] NRBC Pct Auto 0.0 0.0 - 0.2 /100WBC [facility] Neutrophils Absolute Auto 8.3 2.0 - 8.3 x10*3/uL [facility] Imm Gran Abs Auto 0.04(H) 0.00 - 0.03 X10*3/uL [facility] Lymphocytes Absolute Auto 0.8(L) 1.2 - 4.9 X10*3/uL [facility] Monocytes Absolute Auto 0.7 0.1 - 1.2 X10*3/uL [facility] Eosinophils Absolute Auto 0.0 0.0 - 0.4 X10*3/uL [facility] Basophils Absolute Auto 0.0 0.0 - 0.2 X10*3/uL [facility] NRBC Abs Auto 0.000 0.0 - 0.012 X10*3/uL [facility] Blood Venous blood specimen / Unknown 07/05/2024 3:45 PM EST 07/05/2024 6:25 PM EST us Chen Robin MD LAB BLOOD ORDERABLES Final Result [facility] [address] [place] [phone] * (ABNORMAL) Basic Metabolic Panel (07/05/2024 3:45 PM EST) Sodium 136 135 - 145 mmol/L [facility] Potassium 3.4 3.3 - 5.1 mmol/L [facility] Chloride 106 96 - 108 mmol/L [facility] Carbon Dioxide 21(L) 22 - 29 mmol/L [facility] Anion Gap 12 12 - 20 [facility] Urea Nitrogen (BUN) 8(L) 9 - 16 mg/dL [facility] Creatinine, Serum 0.66 0.5 - 1.4 mg/dL [facility] Estimated Glomerular Filt Rate >60 [facility] Comment:Chronic Kidney Disea se: Estimated GFR < 60 mL/min/1.04o3Ughcll Kidney Disease: Estimated GFR < 15 mL/min/1.73m2 Glucose 93 60 - 115 mg/dL [facility] Calcium 8.4 8.4 - 10.2 mg/dL [facility] Blood Venous blood specimen / Unknown 07/05/2024 3:45 PM EST 07/05/2024 6:25 PM EST us Chen Robin MD LAB BLOOD ORDERABLES Final Result [facility] [address] [place] [phone] * (ABNORMAL) Urinalysis, Complete, with Reflex to Culture (07/05/2024 3:30 PM EST) Color Urine BROWN [facility] Appearance Urine Turbid [facility] PH 6.0 5.0 - 9.0 [facility] Glucose Urine UA Negative Negative mg/dL [facility] Urine Blood Trace Negative [facility] Specific [place] - Urine >=1.030(H) 1.005 - 1.025 [facility] Urine Protein Trace Neg-Trace mg/dL [facility] Urine Ketones Negative Negative mg/dL [facility] Nitrite Urine Negative Negative [facility] Leukocyte Esterase Urine Negative Negative [facility] RBC Urine 6-10(A) 0 - 2 /HPF [facility] Urine WBC 0-5 0 - 5 /HPF [facility] Urine Squamous Epithelial Cell 11-20 0 - 2 /HPF [facility] Urine Bacteria Trace None Seen [facility] Hyaline Casts, Urine 3-5 0 - 2 /LPF [facility] Urine 07/05/2024 3:30 PM EST 07/05/2024 6:35 PM EST Narrative [facility] - 07/05/2024 7:09 PM EST [id number], Clean Catch us Chen Robin MD LAB URINE ORDERABLES Final Result Performing Organization Address [facility]/ZIP Co de Phone Number [facility] [address] [place] [phone] * (ABNORMAL) Lipid Panel, Standard (12/10/2023 8:57 AM EDT) Triglycerides 221(H) <150 mg/dL [facility] Comment:Desirable Triglyceri de: less than 150 mg/dLBorderline High Triglyceride 150-199 mg/dLHigh Triglyceride: 200-499 mg/dLVery High Triglyceride: greater than or equal to 5OO mg/dL Cholesterol 184 <200 mg/dL [facility] Comment:Desirable Cholestero l: less than 200 mg/dLBorderline High Cholesterol: 200-239 mg/dLHigh Cholesterol: greater than 239 mg/dL LDL Cholesterol Calculated 107(H) <100 mg/dL [facility] Comment:Desirable LDL: less than 100 mg/dLNear Optimal/Above Optimal LDL: 110- 129 mg/dLBorderline High LDL: 130-159 mg/dLHigh LDL: 160-189 mg/dLVery High LDL: greater than or equal to 190 mg/dL HDL Cholesterol 33(L) >40 mg/dL [facility] Comment:Desirable HDL: great er than 40 mg/dL Note: This HDL assay may give artificially low results in patients with liver disease. Blood Venous blood specimen / Unknown 12/10/2023 8:57 AM EDT 12/10/2023 1:49 PM EDT us Chen Robin MD LAB BLOOD ORDERABLES Final Result [facility] [address] [place] [phone] * Hepatitis C Viral RNA, Quantitative, Real-Time PCR (12/10/2023 8:51 AM EDT) Hepatitis C Viral Load <15 NOT DETECTED NOT DETECTED IU/mL [facility] HCV Log PCR <1.18 NOT DETECTED NOT DETECTED Log IU/mL [facility] Comment:For additional infor mation, please refer [email or web address]/faq/[email or web address](This link is being provided for informational/educational purposes only.)THIS TEST WAS PERFORMED AT:[employer] [place] [phone] FARRELL MD Blood Venous blood specimen / Unknown 12/10/2023 8:51 AM EDT 12/10/2023 1:49 PM EDT Chen Robin MD LAB BLOOD ORDERABLES Final Result [facility] [address] [place] [address] [phone] from Last 3 Months or Most Recently Relevant to Health Maintenance Insurance [facility] C3 Care Teams Courier Driver Relationship Specialty Start Date End Date Chen Robin MD [address] [place] [phone] PCP - General Internal Medicine 12/09/23
--- OUTSIDE RECORDS SUMMARY | 2024-07-05 19:16 | XMS_ITS | Clinical Summary ---
Author Organization [facility] Address [address] [place] [address] Care Team Providers Care Warhead Maintenance Specialist Name Role Phone Unavailable Primary Care Provider Unavailabl e Allergies No known active allergies Medications No known medications Social History Tobacco Use Types Packs/Day Years Used Date Smoking Tobacco: Never Assessed Sex and Gender Information Value Date Recorded Sex Assigned at Not on file Gender Identity Not on file Sexual Orientation Not on file Last Filed Vital Signs Vital Sign Reading Time Taken Comments Blood Pressure 124/86 04/03/2020 1:01 PM EST Pulse 86 04/03/2020 1:01 PM EST Temperature 36.3 ??C (97.3 ??F) 04/03/2020 1:01 PM ES T Respiratory Rate - - Oxygen Saturation 98% 04/03/2020 1:01 PM EST Inhaled Oxygen Concentration - - Weight 90.7 kg (200 lb) 04/03/2020 1:01 PM EST Height 167.6 cm (5' 6 ) 04/03/2020 1:01 PM EST Body Mass Index 32.28 04/03/2020 1:01 PM EST Plan of Treatment Health Maintenance Due Date Last Done Comments Hepatitis C Virus Screening 1987 HIV Screening 01/16/2000 DTaP/Tdap/Td Vaccines (1 - Tdap) 2006 Hepatitis B Vaccines (1 of 3 - 19+ 3-dose series) 2006 Pap Smear (Ages 21-65) 01/16/2008 Influenza Vaccine 12/09/2023 COVID-19 Vaccine ( - 2023-2 5 season) 2024 HPV Vaccines Aged Out No longer eligi ble based on patient's age to complete this topic Pneumococcal Vaccine: Pediat lilo (0-5 Years) and At-Risk Patients (6 to 49 Years) Aged Out No longer eligible b ased on patient's age to complete this topic
--- OUTSIDE RECORDS SUMMARY | 2024-07-05 19:16 | XMS_ITS | Encounter Summary ---
Author Organization [employer] Address [address] [place] [phone] Care Team Providers Care Access Analyst Name Role Phone Chen Robin MD Primary Care Provider [phone] Reason for Visit * Reason Onset Date Comments Nurse Triage 07/04/2024 Encounter Details Date Type Department Care Team ([facility] st Contact Info) Description 07/04/2024 Telephone [facility] PEDS [address] [place] [address] Chen Robin MD [address] [place] [address] Nurse Triage Social History Tobacco Use Types Packs/Day Years [...] EDT Travel History Travel Start Travel End [place] 06/25/2024 07/01/2024 documented as of this encounter Miscellaneous Notes * Telephone Encounter - Macey Flood RN - 07/04/2024 12:32 PM EST Images from the original note were not included. Call returned to Maria C Vázquez to triage below. Reports pain was mild and intermittent. Had painthis morning but resolved with 2 OTC ibuprofen. Pt denies any N/V, diarrhea, UTI sx or fever. Pt states has hx of IBS so BM not regular but no issues there. Pt advised to monitor. TO seek WIC or UC if pain recurs or becomes constant, new sx develop. Reviewed WIC operating hours and that wait times vary. Reviewed home care advise, ER precautions and reasons to call back. Protocol Used: Abdominal Pain - Female (Adult) Protocol-Based Disposition: Home Care Positive Triage Question: * Mild abdominal pain * All higher-acuity triage questions were negative Care Advice Discussed: * Reassurance and Education - Mild Stomachache * Rest * Reasons To Call Back - Severe pain lasts over 1 hour - Constant pain lasts over 2 hours - You become worse Alanis Espinoza RN routed conversation to Holly Triage Nurse3 hours ago (9:20 AM) Maria C Barrera [facility] (supporting Chen Robin MD)4 hours ago (8:19 AM) AM Hi, I???ve had a pain in my lower left abdomen since yesterday afternoon, it is in a specific location and gets worse if I press on it. It???s around where my left ovary would be and I do have a history of ovarian cysts so it might be that, but I???m not sure. I also have IBS so it could be from that. The pain is currently moderate, not severe. Is this something that should be seen by a doctor, or should I just manage with otc medicine at home? documented in this encounter Plan of Treatment Not on file documented as of this encounter Visit Diagnoses Not on filedocumented in this encounter Additional Health Concerns Assessment Noted Time PHQ-9 Depression Total Score: 4 12/09/19 24 1:47 PM EDT documented as of this encounter Care Teams Access Analyst Relationship Specialty Start Date End Date Chen Robin MD [address] [place] [phone] PCP - General Internal Medicine 12/09/23 documented as of this encounter
--- OUTSIDE RECORDS SUMMARY | 2024-07-05 19:16 | XMS_ITS | Clinical Summary ---
Author Organization [facility] Address [address] [place] [address] Care Team Providers Care Environmental Compliance Engineer Name Role Phone Ana Davenport MD Primary Care Provider + Surgical History Surgery Date Site/Laterality Comments POLYPECTOMY PROCEDURE:POLYPECTOMY WISDOM TOOTH EXTRACTION PROCEDURE:WISDOM TOOTH EXTRACTION Medical History Medical History Date Comments Migraine headache DX:Migraine he adache Renal disorder DX:Renal disorde r IBS (irritable bowel syndrome) D X:IBS (irritable bowel syndrome) Social History Tobacco Use Types Packs/Day Years Used Date Smoking Tobacco: Never Smokeless Tobacco: Never Alcohol Use Standard Drinks/Week Comments Not Currently 0 (1 standard drink = 0.6 oz pur e alcohol) Comments Unknown Sex and Gender Information Value Date Recorded Sex Assigned at Not on file Legal Sex Female 12:01 AM EST Gender Identity Not on file Sexual Orientation Not on file Obstetrics History Plan of Treatment Health Maintenance Due Date Last Done Comments DTaP,Tdap,and Td Vaccines (1 - Tdap) 2006 Hepatitis B Vaccines (1 of 3 - 19+ 3-dose series) 2006 Cervical Cancer Screening: P ap Smear 01/16/2008 Depression Screening 04/12/2022 HIV Screening 04/12/2022 Hepatitis C Screening 04/12/2022 Social Influencers of Health Screening 04/12/2022 COVID-19 Vaccine (2023-2 5 season) 2024 Influenza Vaccine (#1) 2024 HIB Vaccines Aged Out No longer eligi [...] on patient's age to complete this topic MMR Vaccines Aged Out No longer eligi ble based on patient's age to complete this topic Meningococcal ACWY Vaccine Aged Out N o longer eligible based on patient's age to complete this topic Meningococcal B Vacine Aged Out No lo nger eligible based on patient's age to complete this topic Pneumococcal Vaccine: Pediat rics (0 to 5 Years) and At-Risk Patients (6 to 64 Years) Aged Out No longer eligible b ased on patient's age to complete this topic RSV Immunization Patients Un seferino 20 months Aged Out No longer eligible b ased on patient's age to complete this topic Varicella Vaccines Aged Out No longer eligible based on patient's age to complete this topic Care Teams Environmental Compliance Engineer Relationship Specialty Start Date End Date Ana Davenport MD PCP - General 04/26/23
--- OUTSIDE RECORDS SUMMARY | 2024-07-05 19:16 | XMS_ITS | Encounter Summary ---
Author Organization [employer] Address [address] [address] Care Team Providers Care Graining Machine Operator Name Role Phone Chen Robin MD Primary Care Provider [phone] Reason for Visit * Reason Onset Date Comments Nurse Triage 07/05/2024 Encounter Details Date Type Department Care Team (Late st Contact Info) Description 07/05/2024 Telephone [facility] MEDICINE [address] [place] [address] Chen Robin MD [address] [place] [address] Nurse Triage Social History Tobacco Use Types [...] EDT Travel History Travel Start Travel End [place] 06/25/2024 07/01/2024 documented as of this encounter Miscellaneous Notes * Telephone Encounter - Lia Elliott RN - 07/05/2024 9:30 AM EST called pt to triage, spoke to pt. pt states 2 days duration of LLQ pain, intermittent vomiting, andwatery diarrhea. pt denies history, constant or severe vomiting, known high fevers, rash, or other associated symptoms. given appt today with [facility] at 3:00 for exam. advised home care: clear fluidsfor now, monitor temperature, and seek ER evaluation if severe symptoms. pt understands and agrees with plan. insurance verified. Protocol Used: Abdominal Pain - Female (Adult) Protocol-Based Disposition: See in Office or Video Visit Today Video visit offer not recorded Positive Triage Questions: * Moderate pain (e.g., interferes with normal activities that comes and goes * Patient wants to be seen. * All higher-acuity triage questions were negative Care Advice Discussed: * Reassurance and Education - Mild Stomachache * Rest * Drink Clear Fluids * Diet * Pass a Stool * Avoid Aspirin and NSAIDs * Reasons To Call Back - Severe pain lasts over 1 hour - Constant pain lasts over 2 hours - Intermittent pains (comes and goes, cramps) lasts over 48 hours - You are - You become worse * Telephone Encounter - Bhargav Griffin - 07/05/2024 8:37 AM EST Symptom: Abdominal Pain - Female - Not Outcome: Schedule an urgent appointment (within 4 hours) or talk to a nurse or provider soon Reason: Getting worse The caller accepted this outcome. documented in this encounter Plan of Treatment Not on file documented as of this encounter Visit Diagnoses Not on filedocumented in this encounter Additional Health Concerns Assessment Noted Time PHQ-9 Depression Total Score: 4 12/09/19 1:47 PM EDT documented as of this encounter Care Teams Graining Machine Operator Relationship Specialty Start Date End Date Chen Robin MD [address] [place] [id number] PCP - General Internal Medicine 12/09/23 documented as of this encounter
--- OUTSIDE RECORDS SUMMARY | 2024-07-05 19:16 | XMS_ITS | Encounter Summary ---
Author Organization [employer] Address [address] [address] Care Team Providers Care Ceo Name Role Phone Chen Robin MD Primary Care Provider [phone] Reason for Visit * Reason Onset Date Comments Referral 04/14/2024 Encounter Details Date Type Department Care Team (Late st Contact Info) Description 04/14/2024 Telephone [facility] MEDICINE [address] [place] [address] Chen Robin MD [address] [place] [address] Referral Social History Tobacco Use Types Packs/Day Years [...] EDT Travel History Travel Start Travel End [place] 06/25/2024 07/01/2024 documented as of this encounter Miscellaneous Notes * Telephone Encounter - Caroline Griffin - 04/18/2024 12:15 PM EST Referral # faxed to Neurology-Dr. Rothman for appointment scheduled for 04/25/2024. * Telephone Encounter - Jose Lee - 04/14/2024 12:23 PM EST Tc from pt was advised by Neurologist to request a prior authorization for neurology referral. If any questions you can contact pt at [phone]. documented in this encounter Plan of Treatment Not on file documented as of this encounter Visit Diagnoses Not on filedocumented in this encounter Additional Health Concerns Assessment Noted Time PHQ-9 Depression Total Score: 4 12/09/19 24 1:47 PM EDT documented as of this encounter Care Teams Ceo Relationship Specialty Start Date End Date Chen Robin MD [address] [place] [id number] PCP - General Internal Medicine 12/09/23 documented as of this encounter
--- OUTSIDE RECORDS SUMMARY | 2024-07-05 19:16 | XMS_ITS | Clinical Summary ---
Author Organization [facility] Address [address] [place] [address] Care Team Providers Care Site Head Name Role Phone Ana Metcalf MD Primary Care Provider Allergies No known active allergies Medications Medication Sig Dispensed Refills Start Date End Date Status propranolol (INDERAL) 10 MG tablet Take 10 mg by mouth 3 (three) times a day. 0 Active naratriptan (AMERGE) 2.5 MG tablet Take 1 tablet (2.5 mg total) by mouth daily as needed. 0 04/03/2023 Active butalbital-acetaminop hen-caffeine 50-325-40 MG per tablet Take 1 tablet by mouth every 4 (four) hours as needed for pain. 10 tablet 0 04/26/2023 Active Active Problems No known active problems Social History Tobacco Use Types Packs/Day Years Used Date Smoking Tobacco: Never Passive Smoke Exposure: Never Smokeless Tobacco: Never Tobacco Cessation:Counseling Given: Not Answered Alcohol Use Standard Drinks/Week Comments Not Currently 0 (1 standard drink = 0.6 oz pur e alcohol) Sex and Gender Information Value Date Recorded Sex Assigned at Female 05/07/2021 3:36 AM EST Gender Identity Female 05/07/2021 3:36 AM EST Sexual Orientation Not on file Job Start Date Occupation Industry Not on file Not on file Not on file Last Filed Vital Signs Vital Sign Reading Time Taken Comments Blood Pressure 143/92 04/27/2023 12:00 AM EST Pulse 90 04/27/2023 12:00 AM EST Temperature 36.3 ??C (97.3 ??F) 05/07/2021 5:02 AM ES T Respiratory Rate 20 04/26/2023 10:20 PM EST Oxygen Saturation 97% 04/27/2023 12:00 AM EST Inhaled Oxygen Concentration - - Weight 113.4 kg (250 lb) 04/26/2023 10:20 PM EST Height 170.2 cm (5' 7 ) 04/26/2023 10:20 PM EST Body Mass Index 39.16 04/26/2023 10:20 PM EST Plan of Treatment Not on file Care Teams Site Head Relationship Specialty Start Date End Date Ana Metcalf MD [address] [id number] PCP - General Obstetrics and Gynecology 04/26/23
== END 2024-07-05 15:44 | disposition home or self-care (01) ==
LOC: HO.CHCLDS 15:43
PROVIDERS: Visit Provider Internal Medicine
DX: R19.7 Diarrhea, unspecified (principal); R10.32 Left lower quadrant pain
CPT/HCPCS: 36415; 80048; 81001; 85025

== ENCOUNTER 2025-01-24 11:00 | Outpatient (REF) | payer MEDICAID, SELFPAY ==
--- OUTSIDE RECORDS SUMMARY | 2025-01-24 10:00 | XMS_ITS | Encounter Summary ---
Author Organization [employer] Address [address] [place] [address] Care Team Providers Care Mingle Operator Name Role Phone Chen Robin MD Primary Care Provider [phone] Reason for Referral * Consultation (Routine) - Pending Review Specialty Diagnoses / Procedures Referred By Chester middleton Referred To Contact Gastroenterology Diagnoses Irritable bowel syndrome with diarrhea Chen Robin MD [address] [place] [address] Phone: tel: fax: Referral ID Status Reason Start Date Expiration Date Visits Requested Visits Authorized [id number] Pending Review Specialty Services Required 01/24/2025 01/24/2026 1 1 * Medications - Closed Specialty Diagnoses / Procedures Referred By Chester middleton Referred To Contact Diagnoses Irritable bowel syndrome with diarrhea Chen Robin MD [address] [place] [address] Phone: tel: fax: Referral ID Status Reason Start Date Expiration Date Visits Re quested Visits Authorized [id number] Closed 1 1 * Medications - Closed Specialty Diagnoses / Procedures Referred By Chester middleton Referred To Contact Diagnoses Class 1 obesity due to excess calories with serious comorbidity and body mass index (BMI) of 34.0 to 34.9 in adult Chen Robin MD [address] [place] [address] Phone: tel: fax: Referral ID Status Reason Start Date Expiration Date Visits Re quested Visits Authorized [id number] Closed 1 1 Reason for Visit * Reason Comments Annual Exam Encounter Details Date Type Department Care Team ([facility] Contact Info) Description 01/24/2025 10:00 AM EDT Office Visit [facility] PEDS [address] [place] [address] Chen Robin MD [address] [place] [address] Annual physical exam (Primary Dx); Chronic migraine with aura without status migrainosus, not intractable; Other secondary hypertension; Dietary counseling; Exercise counseling; Class 1 obesity due to excess calories with serious comorbidity and body mass index (BMI) of 34.0 to 34.9 in adult; Irritable bowel syndrome with diarrhea; Encounter for immunization Social History Tobacco Use Types Packs/Day Years Used Date Smoking Tobacco: Never Smokeless Tobacco: Never Depression Answer Date Recorded Patient Health Questionnaire-9 Score 5 01/24/2025 Patient Health Questionnaire-9 Score 5 01/24/2025 Last PHQ-9: Questionnaire Data Not on file 0 01/24/2025 Housing Stability Answer Date Recorded What is your housing situation today? I have paula diane 01/24/[address] you li ve. Do you have problems with any of the following? None of the above 01/24/2025 Food Insecurity Answer Date Recorded Within the past 12 months, y ou worried that your food would run out before you got money to buy more: Never True 01/24/2025 Within the past 12 months,th e food you bought just didn't last and you didn't have enough money to get more: Never True Transportation Answer Date Recorded In the past 12 months, has l ack of transportation kept you from medical appts, meetings, work or from getting things needed for daily living? No 01/24/2025 Utilities Answer Date Recorded In the past 12 months, has t he electric, gas, oil or water company threatened to shut off services in your home? No 01/24/2025 Depression Answer Date Recorded Patient Health Questionnaire-2 Score 0 01/24/2025 Internet Access Answer Date Recorded Internet Access Q1 Yes 01/24/2025 Internet Access Q2 Not on file 01/24/2025 Comments Unknown Sex and Gender Information Value Date Recorded Sex Assigned at Female 07/22/2023 12:15 PM EDT Legal Sex Female 12:13 PM EDT Gender Identity Female 07/22/2023 12:15 PM EDT Sexual Orientation Bisexual 12/09/2023 3: 32 PM EDT documented as of this encounter Last Filed Vital Signs Vital Sign Reading Time Taken Comments Blood Pressure 127/92 01/24/2025 10:04 AM EDT Pulse 85 01/24/2025 10:04 AM EDT Temperature 36.5 C (97.7 F) 01/24/2025 10:04 AM EDT Respiratory Rate 20 01/24/2025 10:04 AM EDT Oxygen Saturation 99% 01/24/2025 10:04 AM EDT Inhaled Oxygen Concentration - - Weight 99.8 kg (220 lb) 01/24/2025 10:04 AM EDT Height 170.2 cm (5' 7 ) 01/24/2025 10:04 AM EDT Body Mass Index 34.46 01/24/2025 10:04 AM EDT documented in this encounter Functional Status * Over the past 2 weeks, how often have you been bothered by any of the following problems? Question Answer Date of Assessment Author Patient Health Questionnaire-2 Score 0 01/08 10:41 AM EDT Katya Monet MA * Little interest or pleasure in doing things Answer Date of Assessment Author Not at all 01/24/2025 10:41 AM EDT Eliel Monet MA * Feeling down, depressed, or hopeless Answer Date of Assessment Author Not at all 01/24/2025 10:41 AM EDT Eliel Monet MA * Trouble falling or staying asleep, or sleeping too much Answer Date of Assessment Author Several days 01/24/2025 10:41 AM EDT Eliel Monet MA * Feeling tired or having little energy Answer Date of Assessment Author More than half the days 01/24/2025 10:41 AM Katya West MA * Poor appetite or overeating Answer Date of Assessment Author Several days 01/24/2025 10:41 AM Eliel West MA * Feeling bad about yourself - or that you are a failure or have let yourself or your family down Answer Date of Assessment Author Several days 01/24/2025 10:41 AM Eliel West MA * Trouble concentrating on things, such as reading the newspaper or watching television Answer Date of Assessment Author Not at all 01/24/2025 10:41 AM Eliel West MA * Moving or speaking so slowly that other people could have noticed? Or the opposite - being so fidgety or restless that you have been moving around a lot more than usual. Answer Date of Assessment Author Not at all 01/24/2025 10:41 AM Eliel West MA * Thoughts that you would be better off or hurting yourself in some way Answer Date of Assessment Author Not at all 01/24/2025 10:41 AM Eliel West MA * Patient Health Questionnaire-9 Score Answer Date of Assessment Author 5 01/24/2025 10:41 AM Eliel West MA * How difficult have these problems made it for you to do your work, take care of things at home, or get along with other people? Answer Date of Assessment Author Not difficult at all 01/24/2025 10:41 AM Katya Trevizo MA documented as of this encounter Progress Notes * Chen Robin MD - 01/24/2025 10:00 AM EDT SUBJECTIVE Maria C Vázquez is a 40 y.o. female who presents for Annual Exam. HPI 1) history of PCOS with hirsutism. No recent worsening or new onset of any symptoms. 2) history of alternating constipation and diarrhea. The symptoms started in 2018. Patient was initially evaluated by gastroenterology and would like to get a new referral because she is having more symptoms lately. Denies any fever or any other constitutional symptoms. 3) history of obesity. Patient would like to start a weight loss medication. Denies any history of medullary thyroid cancer, M EN, pancreatitis. Problem List[1] Allergies[2] Medications Ordered Prior to Encounter[3] Review of Systems Constitutional: Negative for activity change, appetite change, chills and diaphoresis. HENT: Negative for dental problem, drooling, ear discharge, ear pain and hearing loss. Eyes: Negative for pain, discharge and itching. Respiratory: Negative for cough, choking and chest tightness. Cardiovascular: Negative for chest pain and leg swelling. Gastrointestinal: Positive for constipation and diarrhea. Negative for blood in stool. Genitourinary: Negative for difficulty urinating, dyspareunia, dysuria, enuresis, flank pain, frequency and genital sores. Musculoskeletal: Negative for arthralgias, gait problem and joint swelling. Skin: Negative for pallor. Neurological: Negative for dizziness, seizures, speech difficulty, light- headedness and numbness. Psychiatric/Behavioral: Negative for behavioral problems, confusion and decreased concentration. OBJECTIVE Vitals: 01/24/25 1004 BP: (!) 127/92 BP Location: Left arm Patient Position: Sitting BP Cuff Size: Adult long Pulse: 85 Resp: 20 Temp: 97.7 ??F (36.5 ??C) TempSrc: Oral SpO2: 99% Weight: 220 lb (99.8 kg) Height: 5' 7 (1.702 m) Physical Exam Constitutional: General: She is not in acute distress. Appearance: Normal appearance. She is not ill-appearing, toxic-appearing or diaphoretic. HENT: Head: Normocephalic. Right Ear: Tympanic membrane normal. There is no impacted cerumen. Left Ear: Tympanic membrane normal. There is no impacted cerumen. Nose: Nose normal. No congestion or rhinorrhea. Mouth/Throat: Mouth: Mucous membranes are moist. Eyes: General: No scleral icterus. Right eye: No discharge. Left eye: No discharge. Pupils: Pupils are equal, round, and reactive to light. Cardiovascular: Rate and Rhythm: Normal rate and regular rhythm. Heart sounds: No murmur heard. No friction rub. No gallop. Pulmonary: Effort: Pulmonary effort is normal. No respiratory distress. Breath sounds: No stridor. No wheezing, rhonchi or rales. Chest: Chest wall: No tenderness. Abdominal: General: There is no distension. Palpations: Abdomen is soft. There is no mass. Tenderness: There is no abdominal tenderness. There is no right CVA tenderness or left CVA tenderness. Musculoskeletal: General: Normal range of motion. Cervical back: Normal range of motion. Skin: Comments: Facial hair Neurological: General: No focal deficit present. Mental Status: She is alert and oriented to person, place, and time. Psychiatric: Mood and Affect: Mood normal. Assessment/Plan Assessment/Plan Diagnoses and all orders for this visit: Annual physical exam Comments: Normal cardiopulmonary exam Patient is to maintain a healthy and balanced diet. Orders: - CBC auto differential; Future - Comprehensive Metabolic Panel; Future - Lipid Panel, Standard; Future - TSH with Reflex to Free T4; Future Chronic migraine with aura without status migrainosus, not intractable Comments: follow up w/ neurology Orders: - propranolol (Inderal) 20 MG tablet; Take 1 tablet (20 mg) by mouth 2 times daily. Other secondary hypertension Comments: Resume propranolol 20 mg once a day daily for 1 week, the dose might be increased to 20 mg 2 times a day if the blood pressure is still above goal after 1 week. Orders: - propranolol (Inderal) 20 MG tablet; Take 1 tablet (20 mg) by mouth 2 times daily. Dietary counseling Exercise counseling Class 1 obesity due to excess calories with serious comorbidity and body mass index (BMI) of 34.0 to 34.9 in adult - Tirzepatide (Mounjaro) 2.5 MG/0.5ML solution auto-injector; Inject 2.5 mg under the skin every 7 (seven) days AND 2.5 mg every 7 (seven) days. Dietary Recommendations: Fruits, vegetables, whole grains, protein foods, and fat-free or low-fat dairy products are healthychoices. Eat different types of protein foods in your diet. This can include seafood, lean meats, poultry, beans, peas, lentils, nuts, seeds, soy products, and eggs. Limit foods and beverages higher in added sugars, saturated fat, and sodium. Exercise Recommendations: At least 150 minutes of moderate-intensity physical activity per week, or an equivalent combinationof moderate- and vigorous-intensity activity Irritable bowel syndrome with diarrhea - linaCLOtide (Linzess) 145 MCG capsule; Take 1 capsule (145 mcg) by mouth before breakfast. Do notcrush or chew. - Referral to Gastroenterology; Future Encounter for immunization - HEPATITIS B VACCINE ADULT 20 yrs + - TDAP VACCINE 7 yrs + [1] Patient Active Problem List Diagnosis Class 1 obesity PCOS (polycystic ovarian syndrome) IBS (irritable bowel syndrome) Migraine without status migrainosus, not intractable H/O renal calculi [2] No Known Allergies [3] Current Outpatient Medications on File Prior to Visit Medication Sig Dispense Refill Blood Pressure kit Check BP daily ,. 1 kit 0 ketorolac (Toradol) 10 MG tablet TAKE 1 TABLET BY MOUTH 3 TIMES A DAY NEEDED FOR PAIN X5 DAYS loratadine (Claritin) 10 MG tablet TAKE 1 TABLET BY MOUTH EVERY DAY 90 tablet 1 metFORMIN, OSM, (Fortamet) 500 MG 24 hr tablet Take 1 tablet (500 mg) by mouth with evening meal. Do not crush, chew, or split. 30 tablet 11 metoclopramide (Reglan) 10 MG tablet TAKE 1 TABLET BY MOUTH EVERY DAY NEEDED *REPEAT IN 6 HOURS IF NEEDED, MAX 3/ 24 HOURS* naratriptan (Amerge) 2.5 MG tablet PLEASE SEE ATTACHED FOR DETAILED DIRECTIONS pseudoephedrine (Sudafed) 30 MG tablet Take 1 tablet (30 mg) by mouth every 4 (four) hours if needed for congestion for up to 10 days. 30 tablet 0 triamcinolone (Kenalog) 0.1 % cream Apply topically if needed in the morning and at bedtime (pain and swelling). 30 g 2 [DISCONTINUED] propranolol (Inderal) 20 MG tablet Take 20 mg by mouth. No current facility-administered medications on file prior to visit. documented in this encounter Plan of Treatment Upcoming Encounters Date Type Department Care Team (Late st Contact Info) Description 03/08/2025 9:15 AM EDT Office Visit [facility] & PEDS [address] [place] [address] Chen Robin MD [address] [place] [address] Scheduled Orders Name Type Priority Associated Diagnoses Orde r Schedule CBC auto differential Lab Routine Annual physical exam Expected: 01/24/2025 (Approximate), Expires: 01/24/2026 Comprehensive Metabolic Panel Lab Routine Annual physical exam Expected: 01/24/2025 (Approximate), Expires: 01/24/2026 Lipid Panel, Standard Lab Routine Annual physical exam Expected: 01/24/2025 (Approximate), Expires: 01/24/2026 TSH with Reflex to Free T4 Lab Routine Annual physical exam Expected: 01/24/2025 (Approximate), Expires: 01/24/2026 Scheduled Referrals Name Type Priority Associated Diagnoses Order Schedule Referral to Gastroenterology Outpatient Referral Routine Irritable bowel syndrome with diarrhea Expected: 01/24/2025 (Approximate), Expires: 01/24/2026 documented as of this encounter Visit Diagnoses Diagnosis Annual physical exam- Primary Routine general medical examination at a health care facility Chronic migraine with aura without status migrainosus, not intractable Other secondary hypertension Dietary counseling Dietary surveillance and counseling Exercise counseling Class 1 obesity due to excess calories with serious comorbidity and body mass index (BMI) of 34.0 to 34.9 in adult Irritable bowel syndrome with diarrhea Irritable bowel syndrome Encounter for immunization documented in this encounter Additional Health Concerns Assessment Noted Time PHQ-9 Depression Total Score: 5 01/25/20 25 10:41 AM EDT documented as of this encounter Care Teams Mingle Operator Relationship Specialty Start Date End Date Chen Robin MD [address] [place] [id number] PCP - General Internal Medicine 12/09/23 documented as of this encounter
--- OUTSIDE RECORDS SUMMARY | 2025-01-24 14:08 | XMS_ITS | Encounter Summary ---
Author Organization [employer] Address [address] [place] [address] Care Team Providers Care Manager Completions Name Role Phone Chen Robin MD Primary Care Provider [phone] Reason for Visit * Reason Onset Date Comments Chart prep 01/23/2025 Encounter Details Date Type Department Care Team ([facility] st Contact Info) Description 01/23/2025 Telephone [facility] PEDS [address] [place] [address] Chen Robin MD [address] [place] [address] Chart prep Social History Tobacco Use Types Packs/Day Years [...] PM EDT documented as of this encounter Miscellaneous Notes * Telephone Encounter - Denise Emerson MA - 01/23/2025 3:11 PM EDT Chart Prep Labs: done Images: done Referrals: complete Vaccines due: due Screenings: STI screening, PAP Overdue care gaps: SBIRT, SDOH, and PHQ-9 documented in this encounter Plan of Treatment Upcoming Encounters Date Type Department Care Team ([facility] st Contact Info) Description 03/08/2025 9:15 AM EDT Office Visit [facility]S [address] [place] [address] Chen Robin MD [address] [place] [address] documented as of this encounter Visit Diagnoses Not on filedocumented in this encounter Additional Health Concerns Assessment Noted Time PHQ-9 Depression Total Score: 4 12/09/19 24 1:47 PM EDT documented as of this encounter Care Teams Manager Completions Relationship Specialty Start Date End Date Chen Robin MD [address] [place] [address] PCP - General Internal Medicine 12/09/23 documented as of this encounter
--- OUTSIDE RECORDS SUMMARY | 2025-01-24 14:08 | XMS_ITS | Encounter Summary ---
Author Organization [facility] Address [address] [place] [address] Phone Care Team Providers Care Clinical Pharmacy Manager Name Role Phone Chen Robin MD Primary Care Pr ovider Encounter Details Date Type Department Care Team (Late st Contact Info) Description 08/07/2024 Telephone [facility], Department of Neurology [address] [place] [address] Anna Houser PA-C [address] [place] [address] [email or web address] Social History Tobacco Use Types Packs/Day Years Used Date Smoking Tobacco: Never Assessed Education Answer Date Recorded Are you interested in more education? Not on ailyn e 09/04/2022 Are you concerned about learning? Not on file 09/04/2022 No 09/04/2022 No 09/04/2022 Digital Access Answer Date Recorded No 10/02/2022 No 10/02/2022 No 10/02/2022 Reliable internet access at home? Not on file 10/02/2022 Device with a working camera? Not on file Comments Unknown Sex and Gender Information Value Date Recorded Sex Assigned at Female 06/16/2021 10:48 AM EST Legal Sex Female 9:10 PM EDT Gender Identity Female 06/16/2021 10:48 AM EST Sexual Orientation Bisexual 06/16/2021 10 :48 AM EST documented as of this encounter Plan of Treatment Upcoming Encounters Date Type Department Care Team (Late st Contact Info) Description 02/23/2025 2:30 PM EDT Telemedicine [facility] Neurology at [address] [address] Anna Houser PA-C [address] [place] [id number] [email or web address] 11/01/2025 4:00 PM EDT Telemedicine [facility] Neurology at [address] [place] [address] Obey Villalobos MD [address] [place] [address] [place] [address] [email or web address] documented as of this encounter Visit Diagnoses Not on filedocumented in this encounter Care Teams Clinical Pharmacy Manager Relationship Specialty Start Date End Date Chen Robin MD PCP - General Internal Medicine 07/31/24 documented as of this encounter Additional Source Comments The information contained in this document represents components of the legal health record. It is not the complete legal health record.[facility]
--- OUTSIDE RECORDS SUMMARY | 2025-01-24 14:08 | XMS_ITS | Encounter Summary ---
Author Organization [employer] Address [address] [facility] [address] [place] [address] Care Team Providers Care Business Professor Name Role Phone Chen Robin MD Primary Care Provider [phone] Encounter Details Date Type Department Care Team (Latest Contact Info) Description 01/23/2025 Travel Social History Tobacco Use Types Packs/Day [...] PM EDT documented as of this encounter Plan of Treatment Upcoming Encounters Date Type Department Care Team (Late st Contact Info) Description 03/08/2025 9:15 AM EDT Office Visit [facility] MED & PEDS [address] [place] [address] Chen Robin MD [address] [place] [address] documented as of this encounter Visit Diagnoses Not on filedocumented in this encounter Additional Health Concerns Assessment Noted Time PHQ-9 Depression Total Score: 4 12/09/19 24 1:47 PM EDT documented as of this encounter Care Teams Business Professor Relationship Specialty Start Date End Date Chen Robin MD [address] [place] [address] PCP - General Internal Medicine 12/09/23 documented as of this encounter
--- OUTSIDE RECORDS SUMMARY | 2025-01-24 14:08 | XMS_ITS | Encounter Summary ---
Author Organization [employer] Address [address] [facility] 7[address] [place] [address] Care Team Providers Care Claims Counsel Name Role Phone Chen Robin MD Primary Care Provider [phone] Encounter Details Date Type Department Care Team (Latest Contact Info) Description 01/24/2025 Travel Social History Tobacco Use Types Packs/Day Years Used Date Smoking Tobacco: Never Smokeless Tobacco: Never Depression Answer Date Recorded Patient Health Questionnaire-9 Score 5 01/24/2025 Patient Health Questionnaire-9 Score 5 01/24/2025 Last PHQ-9: Questionnaire Data Not on file 0 01/24/2025 Housing Stability Answer Date Recorded What is your housing situation today? I have puala diane 01/24/[address] you [...] PM EDT documented as of this encounter Functional Status * Over the past 2 weeks, how often have you been bothered by any of the following problems? Question Answer Date of Assessment Author Patient Health Questionnaire-2 Score 0 01/08 10:41 AM CIARRAT Katya Monet [place] * Little interest or pleasure in doing things Answer Date of Assessment Author Not at all 01/24/2025 10:41 AM EDT Eliel Monet MA * Feeling down, depressed, or hopeless Answer Date of Assessment Author Not at all 01/24/2025 10:41 AM CIARRAT Eliel Monet MA * Trouble falling or [...] Assessment Author Several days 01/24/2025 10:41 AM EDEliel Wright MA * Trouble concentrating on things, such [...] 10:41 AM EDT Eliel Monet MA * Patient Health Questionnaire-9 Score Answer Date of Assessment Author 5 01/24/2025 10:41 AM EDT Eliel Monet MA * How difficult have these problems made it for you to do your work, take care of things at home, or get along with other people? Answer Date of Assessment Author Not difficult at all 01/24/2025 10:41 AM EDT Katya Law MA documented as of this encounter Plan of Treatment Upcoming Encounters Date Type Department Care Team (Late st Contact Info) Description 03/08/2025 9:15 AM EDT Office Visit [facility] MED & PEDS [address] [place] [address] Chen Robin MD [address] [place] [address] documented as of this encounter Visit Diagnoses Not on filedocumented in this encounter Additional Health Concerns Assessment Noted Time PHQ-9 Depression Total Score: 5 01/25/20 25 10:41 AM EDT documented as of this encounter Care Teams Claims Counsel Relationship Specialty Start Date End Date Chen Robin MD [address] [place] [address] PCP - General Internal Medicine 12/09/23 documented as of this encounter
--- OUTSIDE RECORDS SUMMARY | 2025-01-24 14:08 | XMS_ITS | Clinical Summary ---
Author Organization [facility] Address [address] [facility] [address] [place] [address] Phone Care Team Providers Care Survey Research Associate Name Role Phone Chen Robin MD Primary Care Pr ovider Medications ketorolac (TORADOL) 10 mg tablet TAKE 1 TABLET BY MOUTH 3 TIMES A DAY NEEDED FOR PAIN X5 DAYS 15 tablet 1 03/06/20 24 Active amitriptyline (ELAVIL) 10 MG tablet Take 1 tablet (10 mg total) by mouth nightly at bedtime. Nightly at 7-8 PM 30 tablet 5 06/16/19 25 026 Active erenumab-aooe (AIMOVIG AUTOINJECTOR) 140 mg/mL subcutaneous injectionIndicat ions:Migraine without aura and without status migrainosus, not intractable Inject 1 mL (140 mg total) under the skin every 28 days. 1 mL 11 08/05/19 25 Active metoclopramide HCl (REGLAN) 10 MG tablet TAKE 1 TABLET BY MOUTH EVERY DAY NEEDED *REPEAT IN 6 HOURS IF NEEDED, MAX 3/ 24 HOURS* 15 tablet 1 10/26/19 25 Active naratriptan (AMERGE) 2.5 MG tablet TAKE 1 TABLET BY MOUTH NEEDED FOR MIGRAINE. TAKE ONE (1) TABLET AT ONSET OF HEADACHE IF RETURNS OR DOES NOT RESOLVE, MAY REPEAT AFTER 4 HOURS DO NOT EXCEED FIVE (5) MG IN 24 HOURS 12 tablet 5 01/25/20 25 Active naratriptan (AMERGE) 2.5 MG tablet TAKE 1 TABLET BY MOUTH NEEDED FOR MIGRAINE. TAKE ONE (1) TABLET AT ONSET OF HEADACHE IF RETURNS OR DOES NOT RESOLVE, MAY REPEAT AFTER 4 HOURS DO NOT EXCEED FIVE (5) MG IN 24 HOURS 12 tablet 5 07/18/19 25 025 Discontinued Encounters Date Type Department Care Team Description 01/20/2025 Refill [facility] Neurology at [address] [address] Alberto Rothman MD Medication Refill 12/19/2024 Telephone [facility] Neurology at [address] [address] Anna Houser PA-C Medication Prior Authorization (erenumab-aooe (AIMOVIG AUTOINJECTOR) 140 mg/mL subcutaneous injection) 12/17/2024 Refill [facility] Neurology at [address] [address] Anna Houser PA-C Med Change Request 10/24/2024 Refill [facility] Neurology at [address] [address] Alberto Rothman MD Medication Refill from Last 3 Months Social History Tobacco [...] Orientation Bisexual 06/16/2021 10 :48 AM EST Plan of Treatment Upcoming Encounters Date Type Department Care Team (Late st Contact Info) Description 02/23/2025 2:30 PM EDT Telemedicine [facility] Neurology at [place] [address] [place] [address] Anna Houser PA-C [address] [place] [address] 11/01/2025 4:00 PM EDT Telemedicine [facility] Neurology at [place] [address] [place] [address] Obey Villalobos MD [address] [place] [address], [address] [place] [address] [email or web address] Health Maintenance Due Date Last Done Comments DEPRESSION SCREENING 1999 SMOKING Hx and SMOKELESS TOBACCO SCREENING 01/16/2000 HIV ONE-TIME SCREENING (18-6 5 YEARS) 2005 PAP SMEAR 01/16/2008 INFLUENZA VACCINE (#1) 2024 , 02/23/2015 COVID-19 VACCINE (3 2024-2 6 season) 2025 08/20/2020, 07/23/2020 Adult Td,Tdap Booster 02/23/2025 02/23/2015 HEPATITIS C SCREENING Completed 07/30/2020 HEPATITIS A VACCINES Aged Out No long er eligible based on patient's age to complete this topic HIB VACCINES Aged Out No longer eligi ble based on patient's age to complete this topic MENINGOCOCCAL VACCINES (ACWY) Aged Out No longer eligible based on patient's age to complete this topic MENINGOCOCCAL VACCINES (B) Aged Out N o longer eligible based on patient's age to complete this topic PNEUMOCOCCAL VACCINES (0-49 years) Aged Out No longer eligible b ased on patient's age to complete this topic Medical Devices Not on file [place] [address] [place] [address] COOPERATIVE C3 [facility] NON MGB PCP [facility] NON MGB P[facility] [place] [facility] MGB [facility]CP [facility] NON [place] [address] [place] [address] C3 [facility]CO [facility] [place] [facility] MGB [facility]CP [facility] [place] NON B PCP [facility]3 A[employer] [facility] [facility] ACO Care Teams Survey Research Associate Relationship Specialty Start Date End Date Chen Robin MD PCP - General Internal Medicine 07/31/24 Additional Source Comments The information contained in this document represents components of the legal health record. It is not the complete legal health record.[facility]
--- OUTSIDE RECORDS SUMMARY | 2025-01-24 14:08 | XMS_ITS | Clinical Summary ---
Author Organization [employer] Address [address] [place] [address] [address] [place] [address] Care Team Providers Care Clerical Investigator Name Role Phone Chen Robin MD Primary Care Provider [phone] Allergies No known active allergies Medications naratriptan (Amerge) 2.5 MG tablet PLEASE SEE ATTACHED FOR DETAILED DIRECTIONS Active metoclopramide (Reglan) 10 MG tablet TAKE 1 TABLET BY MOUTH EVERY DAY NEEDED *REPEAT IN 6 HOURS IF NEEDED, MAX 3/ 24 HOURS* Active ketorolac (Toradol) 10 MG tablet TAKE 1 TABLET BY MOUTH 3 TIMES A DAY NEEDED FOR PAIN X5 DAYS 10/28/19 24 Active loratadine (Claritin) 10 MG tabletIndicatio ns:H/O allergic rhinitis TAKE 1 TABLET BY MOUTH EVERY DAY 90 tablet 1 01/06/20 24 Active propranolol (Inderal) 20 MG tabletIndicatio ns:Chronic migraine with aura without status migrainosus, not intractable,Oth er secondary hypertension Take 1 tablet (20 mg) by mouth 2 times daily. 60 tablet 3 01/25/20 25 Active Tirzepatide (Mounjaro) 2.5 MG/0.5ML solution auto-injectorIn dications:Class 1 obesity due to excess calories with serious comorbidity and body mass index (BMI) of 34.0 to 34.9 in adult Inject 2.5 mg under the skin every 7 (seven) days AND 2.5 mg every 7 (seven) days. 2 mL 3 01/25/20 25 Active linaCLOtide (Linzess) 145 MCG capsuleIndicati ons:Irritable bowel syndrome with diarrhea Take 1 capsule (145 mcg) by mouth before breakfast. Do not crush or chew. 30 capsule 11 01/25/20 026 Active propranolol (Inderal) 20 MG tablet Take 20 mg by mouth. 09/09/19 025 Discontinued(R eorder (will not trigger notification to Pharmacy)) metFORMIN, OSM, (Fortamet) 500 MG 24 hr tabletIndicatio ns:PCOS (polycystic ovarian syndrome) Take 1 tablet (500 mg) by mouth with evening meal. Do not crush, chew, or split. 30 tablet 11 12/09/19 025 Discontinued(T herapy completed) Blood Pressure kitIndications: Elevated BP without diagnosis of hypertension Check BP daily ,. 1 kit 12/09/19 025 Discontinued(T herapy completed) pseudoephedrine (Sudafed) 30 MG tablet Take 1 tablet (30 mg) by mouth every 4 (four) hours if needed for congestion for up to 10 days. 30 tablet 08/03/19 025 Discontinued(T herapy completed) triamcinolone (Kenalog) 0.1 % cream Apply topically if needed in the morning and at bedtime (pain and swelling). 30 g 2 08/03/19 025 Discontinued(T herapy completed) Active Problems Problem Noted Date Diagnosed Date Class 1 obesity 12/09/2023 PCOS (polycystic ovarian syndrome) 12/09/2023 IBS (irritable bowel syndrome) 12/09/2023 Migraine without status migrainosus, not intract able 12/09/2023 H/O renal calculi 12/09/2023 Encounters Date Type Department Care Team Description 01/24/2025 10:00 AM EDT Office Visit [facility] MED & PEDS [address] [place] [address] Chen Robin MD Annual physical exam (Primary Dx); Chronic migraine with aura without status migrainosus, not intractable; Other secondary hypertension; Dietary counseling; Exercise counseling; Class 1 obesity due to excess calories with serious comorbidity and body mass index (BMI) of 34.0 to 34.9 in adult; Irritable bowel syndrome with diarrhea; Encounter for immunization 01/24/2025 Travel 01/23/2025 Travel 01/23/2025 Telephone [facility] MED & PEDS [address] [place] [address] Chen Robin MD Chart prep 01/17/2025 Patient Outreach [facility] MEDICINE [address] [place] [address] Chen Robin MD Pre-visit Planning (Pre visit planning LVM ) from Last 3 Months Immunizations Immunization Administration Dates Next Due Hep B, adult 01/24/2025 Influenza Injectable Quadriv alant Preservative Free IIV4 MDCK 01/25/2023 Influenza Whole 02/23/2015 Influenza injectable quadriv alent preservative free 03/29/2022,03/20/2021,05/17/2020 Tdap 01/24/2025,02/23/2015 Social History Tobacco Use Types Packs/Day Years Used Date Smoking Tobacco: Never Smokeless Tobacco: Never Tobacco Cessation:Counseling Given: No Depression Answer Date Recorded Patient Health Questionnaire-9 Score 5 01/24/2025 Patient Health Questionnaire-9 Score 5 01/24/2025 Last PHQ-9: Questionnaire Data Not on file 0 01/24/2025 Housing Stability Answer Date Recorded What is your housing situation today? I have paula roxi 01/24/[address] you li [...] Orientation Bisexual 12/09/2023 3: 32 PM EDT Last Filed Vital Signs Vital Sign Reading [...] Mass Index 34.46 01/24/2025 10:04 AM EDT Plan of Treatment Upcoming Encounters Date Type Department Care Team (Late st Contact Info) Description 03/08/2025 9:15 AM EDT Office Visit [facility] MED & PEDS [address] [place] [address] Chen Robin MD [address] [place] [address] Health Maintenance Due Date Last Done Comments HIV Screening 1987 Family Planning (PISQ) 2002 HPV Vaccines (1 - 3-dose series) 2002 Pap Smear 01/16/2008 Cervical Cancer Screening 2017 HPV/Cotest 2017 COVID-19 Vaccine ( season) 2025 01/25/2023, 03/29/2022, 03/20/2021, Additional history exists Influenza Vaccine (#1) 2025 , 03/29/2022, 03/20/2021, Additional history exists Hepatitis B Vaccines (2 of 3 - 19+ 3-dose series) 02/21/2025 01/24/2025 Alcohol/Substance Use Screening 01/24/2026 01/24/2025 Depression Screening 01/24/2026 01/24/2025, 01/25/20 25 Disability Screening 01/24/2026 01/24/2025 SDOH Screening 01/24/2026 01/24/2025 Tobacco Screening 01/24/2026 01/24/2025 Lipid Panel 12/09/2028 12/10/2023 DTaP/Tdap/Td Vaccines (3 - Td or Tdap) 01/24/2035 01/24/2025, 02/23/2015 Zoster Vaccines (1 of 2) 2037 RSV [...] age to complete this topic Meningococcal B Vaccine Aged Out No l onger eligible based on patient's age to complete this topic Meningococcal Vaccine Aged Out No bridger mariam eligible based on patient's age to complete this topic Pneumococcal Vaccine: Pediatrics (0 to 5 Years) and At-Risk Patients (6 to 49) Years Aged Out No longer eligible based on patient's age to complete this topic RSV under 20 months Aged Out No longe r eligible based on patient's age to complete this topic Rotavirus Vaccines Aged Out No longer eligible based on patient's age to complete this topic Procedures Procedure Name Priority Date/Time Associated Diagnosis Comments LIPID PANEL, STANDARD Routine 12/10/2023 8:57 AM EDT PCOS (polycystic ovarian syndrome) Class 1 obesity HEPATITIS C VIRAL RNA, QUANTITATIVE, REAL-TIME PCR Routine 12/10/2023 8:51 AM EDT PCOS (polycystic ovarian syndrome) Class 1 obesity from Last 3 Months or Most Recently Relevant to Health Maintenance Results * (ABNORMAL) Lipid Panel, Standard (12/10/2023 8:57 AM EDT) Triglycerides 221(H) <150 mg/dL [facility] Comment:Desirable Triglyceri de: less than 150 mg/dLBorderline High Triglyceride 150-199 mg/dLHigh Triglyceride: 200-499 mg/dLVery High Triglyceride: greater than or equal to 5OO mg/dL Cholesterol 184 <200 mg/dL [facility] Comment:Desirable Cholestero l: less than 200 mg/dLBorderline High Cholesterol: 200-239 mg/dLHigh Cholesterol: greater than 239 mg/dL LDL Cholesterol Calculated 107(H) <100 mg/dL [facility] Comment:Desirable LDL: less than 100 mg/dLNear Optimal/Above Optimal LDL: 110- 129 mg/dLBorderline High LDL: 130-159 mg/dLHigh LDL: 160-189 mg/dLVery High LDL: greater than or equal to 190 mg/dL HDL Cholesterol 33(L) >40 mg/dL [facility] Comment:Desirable HDL: great er than 40 mg/dL Note: This HDL assay may give artificially low results in patients with liver disease. Blood Venous blood specimen / Unknown 12/10/2023 8:57 AM EDT 12/10/2023 1:49 PM EDT Chen Robin MD LAB BLOOD ORDERABLES Final Result [facility] [address] [place] [address] [phone] * Hepatitis C Viral RNA, Quantitative, Real-Time PCR (12/10/2023 8:51 AM EDT) Hepatitis C Viral Load <15 NOT DETECTED NOT DETECTED IU/mL [facility] HCV Log PCR <1.18 NOT DETECTED NOT DETECTED Log IU/mL [facility] Comment:For additional infor rhys, please refer tohttp://education.[employer]/faq/LBI68y9(This link is being provided for informational/educational purposes only.)THIS TEST WAS PERFORMED AT:[facility] [place] [id number] FARRELL MD Blood Venous blood specimen / Unknown 12/10/2023 8:51 AM EDT 12/10/2023 1:49 PM EDT Chen Robin MD LAB BLOOD ORDERABLES Final Result [facility] [address] [place] [address] [phone] from Last 3 Months or Most Recently Relevant to Health Maintenance Insurance [place] [id number] Care Teams Clerical Investigator Relationship Specialty Start Date End Date Chen Robin MD [address] [place] [address] PCP - General Internal Medicine 12/09/23
--- OUTSIDE RECORDS SUMMARY | 2025-01-24 14:08 | XMS_ITS | Encounter Summary ---
Author Organization [employer] Address [address] [place] [address] Care Team Providers Care Welcome Center Attendant Name Role Phone Chen Robin MD Primary Care Provider [phone] Reason for Visit * Reason Onset Date Comments Referral 04/14/2024 Encounter Details Date Type Department Care Team (Late st Contact Info) Description 04/14/2024 Telephone [facility] MEDICINE [address] [place] [address] Chen Robin MD [address] [place] [address] Referral Social History Tobacco Use Types Packs/Day [...] any questions you can contact pt at [phone]. documented in this encounter Plan of Treatment Upcoming Encounters Date Type Department Care Team ([facility] Contact Info) Description 03/08/2025 9:15 AM EDT Office Visit [facility] MED & PEDS [address] [place] [address] Chen Robin MD [address] [place] [address] documented as of this encounter Visit Diagnoses Not on filedocumented in this encounter Additional Health Concerns Assessment Noted Time PHQ-9 Depression Total Score: 4 12/09/19 24 1:47 PM EDT documented as of this encounter Care Teams Welcome Center Attendant Relationship Specialty Start Date End Date Chen Robin MD [address] [place] [address] PCP - General Internal Medicine 12/09/23 documented as of this encounter
--- OUTSIDE RECORDS SUMMARY | 2025-01-24 14:08 | XMS_ITS | Clinical Summary ---
Author Organization [facility] Address [address] [place] [address] Care Team Providers Care Venetian Blind Worker Name Role Phone Ana Davenport MD Primary [...] Cervical Cancer Screening: P ap Smear 01/16/2008 HIV Screening 04/12/2022 Hepatitis C Screening 04/12/2022 Social Influencers of Health Screening 04/12/2022 Depression Screening 05/10/2024 COVID-19 Vaccine ( - 2023-2 5 season) 2025 Influenza Vaccine (#1) 2025 HIB Vaccines Aged Out No longer eligi [...] 5 Years) and At-Risk Patients (6 to 49 Years) Aged Out No longer eligible b ased on patient's age to complete this topic RSV Immunization Patients Un seferino 20 months Aged Out No longer eligible b ased on patient's age to complete this topic Varicella Vaccines Aged Out No longer eligible based on patient's age to complete this topic Care Teams Venetian Blind Worker Relationship Specialty Start Date End Date Ana Davenport MD PCP - General 04/26/23
--- OUTSIDE RECORDS SUMMARY | 2025-01-24 14:08 | XMS_ITS ---
Author Name [facility] Organization Unknown Results Test Name/Text Value Interpretation Date Range Source FLUAV RNA Nph Ql ALEC+non-probe NEGATIVE Normal 04/27/2023 [facility] Service Cmmt XXX-Imp Cepheid GeneXpert (RT-PCR) [facility] Normal 04/27/2023 [facility] FLUBV RNA Nph Ql ALEC+non-probe NEGATIVE Normal 04/27/2023 [facility] SPECIMEN SOURCE XXX NASOPHARYNGEAL Normal 04/27/2023 [facility] AMYLASE SERPL CC[facility] 28.0 U/L Below low normal 04/27/2023 29 - 103 [facility] LIPASE SERPL [facility] 26.0 U/L Normal 04/27/2023 11 - 82 [facility] BILIRUB SERPL [facility] 0.2 mg/dL Below low normal 04/27/2023 0.3 - 1 [facility] BILIRUB DIRECT SERPL [facility] 0.0 mg/dL Normal 04/27/2023 0 - 0.2 [facility] ALP SERPL-CCNC 121.0 U/L Above high normal 04/27/2023 34 - 1 04 [facility] ALT SERPL [facility] 15.0 U/L Normal 04/27/2023 7 - 52 [facility] AST SERPL [facility] 19.0 U/L Normal 04/27/2023 5 - 40 [facility] LDH SERPL L TO P CCNC 141.0 U/L Normal 04/27/2023 125 - 220 [facility] GLUCOSE SERPL [facility] 85.0 mg/dL Normal 04/27/2023 70 - 199 [facility] CHLORIDE SERPL SC[facility] 105.0 mmol/L Normal 04/27/2023 98 - 107 [facility] ANION GAP SERPL [facility] 10.0 mmol/L Normal 04/27/2023 5 - 14 [facility] CALCIUM SERPL [facility] 8.3 mg/dL Below low normal 04/27/2023 8.4 - 10.2 [facility] SODIUM SERPL [facility] 137.0 mmol/L Normal 04/27/2023 135 - 14 5 [facility] Glomerular filtration rate/1.73 sq M. predicted 119.0 Normal 04/27/2023 60 - [facility] HCO3 SER [facility] 22.0 mmol/L Below low normal 04/27/2023 24 - 3 2 [facility] CREAT SERPL [facility] 0.6 mg/dL Normal 04/27/2023 0.5 - 1 [facility] BUN SERPL [facility] 8.0 mg/dL Normal 04/27/2023 7 - 17 [facility] POTASSIUM SERPL SCNC 4.0 mmol/L Normal 04/27/2023 3.5 - 5.1 [facility] BASOPHILS IN BLOOD BY AUTOMATED COUNT 0.0 K/uL Normal 04/27/2023 0 - 0.2 [facility] NEUTROPHILS NFR BLD AUTO 64.2 % Normal 04/27/2023 44 - 74 [facility] MONOCYTES NO. BLD AUTO 0.6 K/uL Normal 04/27/2023 0 - 0.8 [facility] IMMATURE GRANULOCYTE, PERCENT 0.4 % Normal 04/27/2023 0 - 1 [facility] MONOCYTES NFR BLD AUTO 8.2 % Normal 04/27/2023 2 - 12 [facility] IMMATURE GRANULOCYTE, ABSOLUTE 0.03 k/uL Normal 04/27/2023 - 0.1 [facility] LYMPHOCYTES NFR BLD AUTO 23.5 % Normal 04/27/2023 20 - 48 [facility] PMV BLD AUTO 9.6 fL Normal 04/27/2023 7.4 - 11.4 [facility] MCV RBC AUTO 84.2 fL Normal 04/27/2023 78 - 100 [facility] NUC[facility] 0.0 % Normal 04/27/2023 0 - [facility] L[facility] NO. BLD AUTO 1.8 K/uL Normal 04/27/2023 1 - 3.2 [facility] MCHC RBC AUTO MCNC 34.3 g/dL Normal 04/27/2023 32 - 36 [facility] RBC NO. BLD AUTO 3.74 M/uL Below low normal 04/27/2023 4.2 - 5.4 [facility] EOSINOPHIL NFR BLD AUTO 3.6 % Normal 04/27/2023 0 - 6 [facility] HGB BLD MCNC 10.8 g/dL Below low normal 04/27/2023 12.5 - 16 [facility] WBC NO. BLD AUTO 7.8 K/uL Normal 04/27/2023 4 - 10.5 [facility] PLATELET NO. BLD AUTO 247.0 K/uL Normal 04/27/2023 150 - 450 [facility] NEUTROPHILS NO. BLD AUTO 5.0 K/uL Normal 04/27/2023 1.8 - 7.8 [facility] BASOPHILS NFR BLD AUTO 0.1 % Normal 04/27/2023 0 - 2 [facility] HCT VFR BLD AUTO 31.5 % Below low normal 04/27/2023 37 - 47 [facility] RDW RBC AUTO RTO 12.9 % Normal 04/27/2023 12.1 - 16.2 [facility] EOSINOPHIL NO. BLD AUTO 0.3 K/uL Normal 04/27/2023 0 - 0.5 [facility] MCH RBC QN AUTO 28.9 pg Normal 04/27/2023 25 - 33 [facility] Encounters Encounter Type Encounter Reason Primary Diagnosis Location Date Emergency Anemia, unspecified Anemia, unspecified [facility] 04/26/2023 Care Team Organization Name Specialty Phone Email Start Date End Da te [facility] 05/30/2023 [facility] 05/30/2023 11/21/2024 [facility] 04/27/2023 11/21/2024 [facility] 04/26/2023 04/26/2023
--- OUTSIDE RECORDS SUMMARY | 2025-01-24 14:08 | XMS_ITS | Clinical Summary ---
Author Organization [facility] Address [address] [place] [address] Care Team Providers Care Supervisor Prep Name Role Phone Unavailable Primary Care Provider Unavailabl e Allergies No known active allergies Medications No known medications Social History Tobacco Use Types Packs/Day Years Used Date Smoking Tobacco: Never Assessed Comments Unknown Sex and Gender Information Value Date Recorded Sex Assigned at Not on file Legal Sex Female 12:52 PM EST Gender Identity Not on file Sexual Orientation Not on file Last Filed Vital Signs Vital Sign Reading Time Taken Comments Blood Pressure 124/86 04/03/2020 1:01 PM EST Pulse 86 04/03/2020 1:01 PM EST Temperature 36.3 C (97.3 F) 04/03/2020 1:01 PM EST Respiratory Rate - - Oxygen Saturation 98% [...] series) 2006 Pap Smear (Ages 21-65) 01/16/2008 HPV Vaccines (1 - 3-dose SCD M series) 2014 Influenza Vaccine 12/08/2024 COVID-19 Vaccine ( - 2023-2 5 season) 2025 Pneumococcal Vaccine: Pediat lilo (0-5 Years) and At-Risk Patients (6 to 49 Years) Aged Out No longer eligible b ased on patient's age to complete this topic Insurance [facility]
--- OUTSIDE RECORDS SUMMARY | 2025-01-24 14:08 | XMS_ITS | Clinical Summary ---
Author Organization [facility] Address [address] [place] [address] Care Team Providers Care Wedding Designer Name Role Phone Ana Metcalf MD Primary [...] 90 04/27/2023 12:00 AM EST Temperature 36.3 C (97.3 F) 05/07/2021 5:02 AM EST Respiratory Rate 20 04/26/2023 10:20 PM EST Oxygen Saturation 97% 04/27/2023 12:00 AM EST Inhaled Oxygen Concentration - - Weight 113.4 kg (250 lb) 04/26/2023 10:20 PM EST Height 170.2 cm (5' 7 ) 04/26/2023 10:20 PM EST Body Mass Index 39.16 04/26/2023 10:20 PM EST Plan of Treatment Not on file Care Teams Wedding Designer Relationship Specialty Start Date End Date Ana Metcalf MD [address] [place] [address] [address] [place] [phone] PCP - General Obstetrics and Gynecology 04/26/23
--- OUTSIDE RECORDS SUMMARY | 2025-01-24 14:08 | XMS_ITS | Encounter Summary ---
Author Organization [facility] Address [address] [place] [address] Phone Care Team Providers Care Research Soil Scientist Name Role Phone Chen Robin MD Primary Care Pr ovider Reason for Visit * Reason Comments Medication Refill Encounter Details Date Type Department Care Team ([facility] st Contact Info) Description 01/20/2025 Refill [facility] Neurology at [address] [address] Alberto Rothman MD [address] [place] [address] Department of Neurology, [place] [address] [email or web address] Medication Refill Social History Tobacco Use Types Packs/Day Years [...] Info) Description 02/23/2025 2:30 PM EDT Telemedicine [facility] Neurology at [address] [address] Anna Houser PA-C [address] [place] [phone] [email or web address] 11/01/2025 4:00 PM EDT Telemedicine [facility] Neurology at [address] [address] Obey Villalobos MD [address] [place] [address] [place] [address] [email or web address] documented as of this encounter Visit Diagnoses Not on filedocumented in this encounter Care Teams Research Soil Scientist Relationship Specialty Start Date End Date Chen Robin MD PCP - General Internal Medicine 07/31/24 documented as of this encounter Additional Source Comments The information contained in this document represents components of the legal health record. It is not the complete legal health record.[facility]
[2025-01-24 14:18] LABS: MANUAL DIFF FLAG NO
[2025-01-24 14:29] LABS: Hematocrit 39.6 % (37.0-47.0); Hemoglobin 13.8 g/dl (12.0-16.0); Imm Gran Abs Auto 0.01 X10*3/uL (0.00-0.03); Imm Gran Pct Auto 0.2 % (0.0-0.4); Lymphocytes Absolute Auto 2.2 X10*3/uL (1.2-4.9); Mean Corpuscular HGB Conc 34.8 g/dl (31.0-35.0); Mean Corpuscular Hemoglobin 29.7 pg (27.0-33.0); Mean Corpuscular Volume 85.3 fL (80.0-98.0); NRBC Abs Auto 0.000 X10*3/uL (0.0-0.012); NRBC Pct Auto 0.0 /100WBC (0.0-0.2); Platelet Count 282 X10*3/uL (160-400); Red Blood Count 4.64 X10*6/uL (4.20-5.50); White Blood Count 6.3 X10*3/uL (4.8-10.8)
[2025-01-24 14:57] LABS: Alanine Aminotransferase 15 U/L (0-31); Albumin Level 4.2 g/dL (3.5-5.0); Alkaline Phosphatase 98 U/L (39-117); Anion Gap 11 (12-20); Aspartate Amino Transferase 24 U/L (5-31); Blood Urea Nitrogen 8 mg/dL (9-16); Calcium 8.7 mg/dL (8.4-10.2); Carbon Dioxide 26 mmol/L (22-29); Chloride 107 mmol/L (96-108); Cholesterol 206 mg/dL (<200); Estimated Glomerular Filt Rate > 60; HDL Cholesterol 36 mg/dL (>40); Potassium 4.1 mmol/L (3.3-5.1); Sodium 140 mmol/L (135-145); Total Protein 7.4 g/dL (6.5-8.0); Triglycerides 160 mg/dL (<150)
== END 2025-01-24 11:01 | disposition home or self-care (01) ==
LOC: HO.CHCLDS 11:00
PROVIDERS: Visit Provider Internal Medicine
DX: Z00.00 Encounter for general adult medical examination without abnormal findings (principal)
CPT/HCPCS: 36415; 80053; 80061; 84443; 85025